=== PATIENT | male | born 1950 | race Caucasian/White ===

== ENCOUNTER → 2017-02-21 | Outpatient (CLI) | payer MEDICARE, BC, OTHER ==
--- NOTE | 2017-02-21 10:56 | REP ---
RIGHT FOOT SERIES: Four views of the right foot are performed. I see no acute fracture or dislocation. There is mild inferior calcaneal spurring. There is mild narrowing at the 1st metatarsophalangeal joint with mild subchondral sclerosis. There is diffuse narrowing of the distal interphalangeal joints of the 2nd through 5th toes. IMPRESSION: Mild degenerative changes.
== END ==
LOC: M CLY 10:16
PROVIDERS: ATTEND Family Medicine
DX: M10.071 Idiopathic gout, right ankle and foot (principal); E78.00 Pure hypercholesterolemia, unspecified; I10 Essential (primary) hypertension
CPT/HCPCS: 73630; 80053; 80061; 84550; 85027; G0463

== ENCOUNTER → 2017-02-21 | Outpatient (REF) | payer MEDICARE, OTHER ==
[2017-02-21 12:52] LABS: MEAN CORPUSCULAR HEMOGLOBIN 32.4 pg (27.0-33.0); MEAN CORPUSCULAR HGB CONC 34.2 g/dl (32.0-36.5); MEAN CORPUSCULAR VOLUME 94.6 fl (80.0-96.0); WHITE BLOOD COUNT 6.1 K/mm3 (4.0-10.0)
[2017-02-21 13:08] LABS: ALBUMIN/GLOBULIN RATIO 1.05 (1.00-1.93); ALKALINE PHOSPHATASE 69 U/L (45-117); ALT/SGPT 30 U/L (12-78); ANION GAP 7 MEQ/L (8-16); AST/SGOT 14 U/L (15-37); BILIRUBIN,TOTAL 0.9 MG/DL (0.2-1.0); BLOOD UREA NITROGEN 15 MG/DL (7-18); CALCIUM LEVEL 9.3 MG/DL (8.8-10.2); CARBON DIOXIDE LEVEL 29 MEQ/L (21-32); CHLORIDE LEVEL 104 MEQ/L (98-107); CHOLESTEROL LEVEL 158 MG/DL (<200); CREATININE FOR GFR 0.94 MG/DL (0.70-1.30); GLOMERULAR FILTRATION RATE > 60.0 (>49); GLUCOSE, FASTING 94 MG/DL (80-110); POTASSIUM SERUM 4.7 MEQ/L (3.5-5.1); SODIUM LEVEL 140 MEQ/L (136-145); TOTAL PROTEIN 7.8 GM/DL (6.4-8.2); TRIGLYCERIDES LEVEL 62 MG/DL (<150); URIC ACID 6.2 MG/DL (3.5-7.2)
== END ==
LOC: M SFHCCLAY 09:27
PROVIDERS: ATTEND Family Medicine
DX: E78.00 Pure hypercholesterolemia, unspecified (principal); I10 Essential (primary) hypertension; M10.9 Gout, unspecified

== ENCOUNTER → 2017-05-18 | Outpatient (REF) | payer MEDICARE, OTHER | LOC: M SFHCCLAY 12:56 | PROVIDERS: ATTEND Nurse Practitioner | DX: N40.3 Nodular prostate with lower urinary tract symptoms (principal) ==

== ENCOUNTER → 2017-10-16 | Outpatient (REF) | payer MEDICARE, OTHER | LOC: M LAB REF 12:52 | DX: M51.36 Other intervertebral disc degeneration, lumbar region (principal) | CPT/HCPCS: 80307 ==

== ENCOUNTER → 2018-02-15 | Outpatient (REF) | payer MEDICARE, OTHER ==
[2018-02-15 16:51] LABS: HEMATOCRIT 44.5 % (42.0-52.0); HEMOGLOBIN 15.1 g/dl (13.5-17.5); MEAN CORPUSCULAR HEMOGLOBIN 31.3 pg (27.0-33.0); MEAN CORPUSCULAR HGB CONC 33.9 g/dl (32.0-36.5); MEAN CORPUSCULAR VOLUME 92.3 fl (80.0-96.0); PLATELET COUNT, AUTOMATED 251 10^3/uL (150-450); RED BLOOD COUNT 4.82 10^6/uL (4.30-6.10); WHITE BLOOD COUNT 6.6 10^3/uL (4.0-10.0)
[2018-02-15 16:56] LABS: ALBUMIN 4.4 GM/DL (3.2-5.2); ALBUMIN/GLOBULIN RATIO 1.16 (1.00-1.93); ALKALINE PHOSPHATASE 62 U/L (45-117); ALT/SGPT 39 U/L (12-78); ANION GAP 10 MEQ/L (8-16); AST/SGOT 16 U/L (7-37); BILIRUBIN,TOTAL 0.8 MG/DL (0.2-1.0); BLOOD UREA NITROGEN 17 MG/DL (7-18); CALCIUM LEVEL 9.7 MG/DL (8.8-10.2); CARBON DIOXIDE LEVEL 26 MEQ/L (21-32); CHLORIDE LEVEL 105 MEQ/L (98-107); CHOLESTEROL LEVEL 159 MG/DL (<200); CHOLESTEROL RISK RATIO 1.962 (<5); CREATININE FOR GFR 0.97 MG/DL (0.70-1.30); GLOMERULAR FILTRATION RATE > 60.0 (>49); GLUCOSE, FASTING 103 MG/DL (70-100); HDL CHOLESTEROL 81 MG/DL (>40); NON-HDL-C 78 MG/DL; POTASSIUM SERUM 4.5 MEQ/L (3.5-5.1); SODIUM LEVEL 141 MEQ/L (136-145); TOTAL PROTEIN 8.2 GM/DL (6.4-8.2); TRIGLYCERIDES LEVEL 65 MG/DL (<150)
== END ==
LOC: M SFHCCLAY 09:30
DX: I10 Essential (primary) hypertension (principal); E78.00 Pure hypercholesterolemia, unspecified; M10.9 Gout, unspecified; Z85.46 Personal history of malignant neoplasm of prostate
CPT/HCPCS: 80053

== ENCOUNTER → 2018-08-14 | Outpatient (REF) | payer MEDICARE, OTHER ==
[2018-08-14 12:15] LABS: BLOOD UREA NITROGEN 13 MG/DL (7-18); CALCIUM LEVEL 9.2 MG/DL (8.8-10.2); CARBON DIOXIDE LEVEL 29 MEQ/L (21-32); CHLORIDE LEVEL 106 MEQ/L (98-107); CREATININE FOR GFR 0.92 MG/DL (0.70-1.30); GLOMERULAR FILTRATION RATE > 60.0 (>49); GLUCOSE, FASTING 98 MG/DL (70-100); POTASSIUM SERUM 4.5 MEQ/L (3.5-5.1); SODIUM LEVEL 141 MEQ/L (136-145)
== END ==
LOC: M SFHCCLAY 07:42
PROVIDERS: ATTEND Family Medicine
DX: I48.2 Chronic atrial fibrillation (principal)
CPT/HCPCS: 80048; 84443; G0463

== ENCOUNTER → 2019-02-12 | Outpatient (REF) | payer MEDICARE, BC ==
[~2019-02-12] MED LIST: ASPI-255 PO; ATEN50TA2 PO; COLC1TAB13 PO; FISH1000 PO; GABA-1171 PO; GABA-843 PO; HM G1TAB PO; LIPI10TA PO; LISI-542 PO; NITR0.4S14 SL; TIZA4CAP PO
[2019-02-12 17:12] LABS: ALBUMIN 4.2 GM/DL (3.2-5.2); ALT/SGPT 40 U/L (12-78); BILIRUBIN,TOTAL 0.8 MG/DL (0.2-1.0); BLOOD UREA NITROGEN 10 MG/DL (7-18); CALCIUM LEVEL 9.6 MG/DL (8.8-10.2); CARBON DIOXIDE LEVEL 31 MEQ/L (21-32); CHLORIDE LEVEL 107 MEQ/L (98-107); CHOLESTEROL LEVEL 166 MG/DL (<200); CREATININE FOR GFR 0.88 MG/DL (0.70-1.30); GLOMERULAR FILTRATION RATE > 60.0 (>49); GLUCOSE, FASTING 103 MG/DL (70-100); HDL CHOLESTEROL 86 MG/DL (>40); LDL CHOLESTEROL 68 MG/DL (<100); MAGNESIUM LEVEL 2.3 MG/DL (1.8-2.4); NON-HDL-C 80 MG/DL; POTASSIUM SERUM 4.7 MEQ/L (3.5-5.1); SODIUM LEVEL 141 MEQ/L (136-145); TOTAL PROTEIN 7.6 GM/DL (6.4-8.2); TRIGLYCERIDES LEVEL 60 MG/DL (<150)
[2019-02-12 17:23] LABS: HEMATOCRIT 44.1 % (42.0-52.0); HEMOGLOBIN 14.5 g/dl (13.5-17.5); MEAN CORPUSCULAR HEMOGLOBIN 32.1 pg (27.0-33.0); MEAN CORPUSCULAR HGB CONC 32.9 g/dl (32.0-36.5); MEAN CORPUSCULAR VOLUME 97.6 fl (80.0-96.0); PLATELET COUNT, AUTOMATED 244 10^3/uL (150-450); RED BLOOD COUNT 4.52 10^6/uL (4.30-6.10); WHITE BLOOD COUNT 4.3 10^3/uL (4.0-10.0)
== END ==
LOC: M LABDRAWC 16:17
PROVIDERS: ATTEND Physician Assistant
DX: I48.2 Chronic atrial fibrillation (principal); E78.00 Pure hypercholesterolemia, unspecified; I25.10 Atherosclerotic heart disease of native coronary artery without angina pectoris; I10 Essential (primary) hypertension

== ENCOUNTER → 2019-02-12 | Outpatient (CLI) | payer MEDICARE, BC ==
[~2019-02-12] MED LIST changes: +GARL500C PO; +PERC5TAB12 PO; +XARE10TA PO
--- NOTE | 2019-02-12 12:24 | REP ---
Chest two views HISTORY: Preop Comparison: None The lungs are clear. The heart is normal in size. The pulmonary vasculature is normal in appearance. The bony structure is intact. IMPRESSION: No acute disease.
[2019-02-12 17:18] LABS: ALT/SGPT 42 U/L (12-78); BILIRUBIN,TOTAL 0.7 MG/DL (0.2-1.0); BLOOD UREA NITROGEN 10 MG/DL (7-18); CALCIUM LEVEL 9.2 MG/DL (8.8-10.2); CARBON DIOXIDE LEVEL 30 MEQ/L (21-32); CHLORIDE LEVEL 108 MEQ/L (98-107); CREATININE FOR GFR 0.86 MG/DL (0.70-1.30); GLOMERULAR FILTRATION RATE > 60.0 (>49); GLUCOSE, FASTING 104 MG/DL (70-100); POTASSIUM SERUM 4.7 MEQ/L (3.5-5.1); SODIUM LEVEL 141 MEQ/L (136-145); TOTAL PROTEIN 7.6 GM/DL (6.4-8.2)
[2019-02-12 17:25] LABS: HEMOGLOBIN 14.3 g/dl (13.5-17.5); MEAN CORPUSCULAR HEMOGLOBIN 31.8 pg (27.0-33.0); MEAN CORPUSCULAR HGB CONC 32.5 g/dl (32.0-36.5); MEAN CORPUSCULAR VOLUME 97.8 fl (80.0-96.0); PLATELET COUNT, AUTOMATED 253 10^3/uL (150-450); WHITE BLOOD COUNT 4.2 10^3/uL (4.0-10.0)
[2019-02-12 17:36] LABS: INR 0.93; PROTHROMBIN TIME 12.6 SECONDS (12.1-14.4)
[2019-02-12 18:06] LABS: ERYTHROCYTE SEDIMENTATION RATE 9 mm/hr (0-20)
== END ==
LOC: M CLY 11:35
PROVIDERS: ATTEND Orthopaedic Surgery
DX: Z01.818 Encounter for other preprocedural examination (principal); M17.11 Unilateral primary osteoarthritis, right knee; I48.2 Chronic atrial fibrillation; I10 Essential (primary) hypertension
CPT/HCPCS: 71046; 80053; 80061; 83735; 85027; 85610; 85652; G0463

== ENCOUNTER 2019-02-18 09:29 | Inpatient (IN) | payer MEDICARE, BC, OTHER ==
--- NOTE | 2019-02-14 13:40 | HPE ---
DATE OF ADMISSION: 02/18/2019 ATTENDING PHYSICIAN: Dr. Dawood Napier. CHIEF COMPLAINT: Right knee pain. HISTORY OF PRESENT ILLNESS: Mr. Fitzgerald is a pleasant 68-year-old male with progressively worsening right knee pain and stiffness. He has failed to improve with conservative treatment. He has elected for surgery for his continued symptoms. He has pain with weightbearing activities and his activities of daily living. X-rays of his knee are notable for advanced osteoarthritis of the right knee joint. He has consented for a right total knee arthroplasty by Dr. Dawood Napier. Medical optimization was performed by Dr. Encarnacion. ALLERGIES: None. CURRENT MEDICATIONS: - gabapentin 100 mg in the morning 300 at bedtime - tizanidine 4 mg three times a day as needed - fish oil 1200 mg twice a day - aspirin 325 mg a day - lisinopril 5 mg a day - Lipitor 10 mg at bedtime - Nitrostat 0.4 mg sublingual as needed - colchicine 0.6 mg - Lidoderm patch 5% - garlic 1000 mg. PAST SURGICAL HISTORY: Includes tonsils and adenoids as a 11-year-old and a right knee arthroscopy in 2014. PAST MEDICAL HISTORY: Includes gout, hypertension, hyperlipidemia. SOCIAL HISTORY: This gentleman is retired. Does not smoke. Drinks daily. FAMILY HISTORY: Noncontributory. REVIEW OF SYSTEMS: This patient denies chest pain, heart palpitations, cough, wheezing, difficulty breathing and shortness of breath. He denies abdominal pain, nausea, vomiting, diarrhea or constipation. He denies recent upper respiratory infection or urinary tract infection symptoms. He does complain of persistent pain in the right knee and pain with weightbearing activities in the right knee. PHYSICAL EXAMINATION: GENERAL: He is well-nourished, well-developed in no acute distress, alert male patient. He walks with a mild limp favoring the right lower extremity. He is not using assistive devices. VITAL SIGNS: He is 6 foot 1-3/4 inches tall, weighs 204.4 pounds, temperature of 97.5, blood pressure 112/72, pulse 60, respirations of 12. Neck was supple without adenopathy or jugular venous distension. There were no carotid bruits appreciated upon auscultation. Lungs were clear to auscultation without rales or wheeze throughout. Heart: Regular rate and rhythm. Abdomen: Bowel sounds were present. Extremities: Examination of the knee revealed intact skin. He had decreased range of motion due to pain and stiffness. The limb was neurovascularly intact. LABORATORY DATA: EKG showed atrial fibrillation with somewhat slow ventricular response at 50 beats per minute. I do not have a chest x-ray. Glucose was 104, BUN 10, creatinine 0.86, sodium 141, potassium 4.7. ProTime 12.6, INR 0.93. CBC showed MCV of 97.8, otherwise within normal limits with a sed rate of 9. IMPRESSION: Symptomatic osteoarthritis of the right knee joint. PLAN: He consented for a right total knee arthroplasty by Dr. Dawood Napier.
[~2019-02-18] VITALS: Ht 188 cm; Wt 89.8 kg
[~2019-02-18 09:29] MED LIST changes: -GARL500C PO; +LIDOCAINE 1% MDV 20ML VIAL SQ PRN; +LR 1,000 ML IV ONE; -PERC5TAB12 PO; -XARE10TA PO
[2019-02-18] MEDS ORDERED: GARL500C PO (10:30)
[2019-02-18] MEDS ORDERED: EPINEPHrine INJ 1 MG/ML 1ML AMP As Ordered ONE (11:13)
[2019-02-18] MEDS ORDERED: BUPIVACAINE LIPOSOME/PF 1.3% 20ML VIAL (13.3MG/ML)(EXPAREL)(C9290 PER1MG) As Ordered ONE (11:13)
[2019-02-18] MEDS ORDERED: ceFAZolin 1GM INJ (J0690 PER 500MG) As Ordered ONE (11:13)
[2019-02-18] MEDS ORDERED: TRANEXAMIC ACID 100 MG/ML 10ML VIAL As Ordered ONE (11:13)
[2019-02-18] MEDS ORDERED: MIDAZOLAM INJ 2 MG/2 ML VIAL (J2250) As Ordered ONE ×2 (11:25→13:16)
[2019-02-18] MEDS ORDERED: fentaNYL 100 MCG/2 ML INJECTION (J3010) As Ordered ONE ×2 (11:25→13:16)
[2019-02-18] MEDS ORDERED: MIDAZOLAM INJ 2 MG/2 ML VIAL (J2250) IV ONE ×2 (12:30→12:45)
[2019-02-18] MEDS ORDERED: fentaNYL 100 MCG/2 ML INJECTION (J3010) IV ONE ×2 (12:30→12:45)
[2019-02-18] MEDS ORDERED: ONDANSETRON 4MG/2ML VIAL (J2405) As Ordered ONE (13:16)
[2019-02-18] MEDS ORDERED: PROPOFOL 200 MG/20 ML VIAL As Ordered ONE (13:16)
[2019-02-18] MEDS ORDERED: LIDOCAINE 2% INJ 100 MG/5 ML SDV (FOR ANES.) As Ordered ONE (13:16)
[2019-02-18] MEDS ORDERED: ePHEDrine SULFATE 25 MG/5 ML(5MG/ML) SYRINGE As Ordered ONE (13:41)
[2019-02-18] MEDS ORDERED: ROPIvacaine 0.5% 30 ML INJECTION (J2795 PER 1MG) ONE (14:03)
[2019-02-18] MEDS ORDERED: dexameTHASONE 10 MG/1 ML VIAL PRES.FREE (J1100) ONE (14:03)
[2019-02-18] MEDS ORDERED: LIDOCAINE 1% MDV 20ML VIAL ONE (14:03)
[2019-02-18] MEDS ORDERED: HYDROMORPHONE HCL 0.5 MG/ 0.5 ML SYRINGE (J1170 PER 1) IV PRN (14:15)
[2019-02-18] MEDS ORDERED: PERCOCET 5MG/325MG TAB PO PRN ×2 (14:15→14:30)
[2019-02-18] MEDS ORDERED: LR 1,000 ML IV SCH (14:15)
[2019-02-18] MEDS ORDERED: MORPHINE 4 MG/ML 1ML VIAL/SYRINGE (J2270) IV PRN ×2 (14:15→14:30)
[2019-02-18] MEDS: LR 1,000 ML IV SCH (14:15)
[2019-02-18] MEDS ORDERED: ONDANSETRON 4MG/2ML VIAL (J2405) IV PRN ×2 (14:15→14:30)
[2019-02-18] MEDS ORDERED: fentaNYL 100 MCG/2 ML INJECTION (J3010) IV PRN (14:15)
--- NOTE | 2019-02-18 14:53 | IPN ---
DATE: 02/18/2019 Patient seen and examined. He wishes to go ahead with a right total knee arthroplasty. He understands the nature of this, the risks of bleeding, infection, damage to nerves, vessels, persistent pain, wear, loosening, blood clots, medical problems, , among others. He wishes to proceed with a right knee arthroplasty. Preop clearance was obtained.
--- NOTE | 2019-02-18 14:56 | RO ---
DATE OF PROCEDURE: 02/18/2019 PREOPERATIVE DIAGNOSIS: Right knee osteoarthritis. POSTOPERATIVE DIAGNOSIS: Right knee osteoarthritis. PROCEDURE: Right total knee arthroplasty, Attune rotating platform cruciate-retaining size 6, femur size 7, tibia 8, polyethylene 38 patellar button. SURGEON: Dawood Napier MD ASSEMBLER RUBBER FOOTWEAR: Beto Mckeon PA-C ANESTHESIA: Spinal. ESTIMATED BLOOD LOSS (EBL): Less than 50. COMPLICATION: None. INDICATIONS: A 68-year-old gentleman who has had some persistent knee pain with severe arthritis that was [id number]. He had diffuse pain and wished to go ahead with the knee replacement. He understood the nature of this, the risks, and the alternatives. DESCRIPTION OF PROCEDURE: The patient was taken to the operating room and placed in supine position after spinal anesthesia was induced. The right lower extremity was prepped and draped in the usual sterile fashion. Tourniquet was inflated after time-out was performed. I then created a longitudinal incision over the anterior aspect of the knee, a curvilinear incision over the medial parapatellar region, everted the patella, flexed the knee up, used the canal-initiating reamer, followed by the intramedullary guide set at 9 mm and 5 degrees of valgus. This was pinned in placed. The distal femoral cut was made. I sized the femur to be a 6. The pin holes were placed in the end of the femur with external rotation dialed in, and the cutting block was secured with remaining four cuts made. I then prepared the tibia. The tibial alignment guide was placed, and the appropriate amount of slope and valgus were dialed in, and this was pinned in place. External alignment guide was used to confirm the alignment, and the proximal tibia cut was made, removing about 4 mm of bone on the medial side. The posterior cruciate ligament (PCL) was retained. I removed any osteophytes and soft tissue from either side of the knee. The flexion extension gaps were appropriate. I then used the spacer block and decided on probably a size 8 polyethylene poly. I then prepared the tibia. The tibial plate was placed. It was a size 7. This was drilled and broached. I had also done the sulcus cut on the femur, and the trial components were then placed, which fit very nicely and very stable. The patella was freehand cut, removing about 8 mm of bone, sized to be a 38. The drill holes were placed, and the drill holes were placed at the end of the femur. The knee was very stable. It had excellent alignment. Excellent soft tissue balance. I removed the trial components, irrigated and dried copiously. The manufacturing assistant prepared the bone cement in a modern technique. I then injected the Exparel in deep tissues. I cemented on the tibial tray, and the polyethylene was placed. The femoral component was placed and cemented on. All excess bone cement was removed. I cemented on the patella, held it in place with a clamp, and irrigated copiously. I placed the tranexamic acid (TXA) solution deep in the tissues, and final irrigation was performed. I then removed the patellar clamp once the cement had hardened, and final irrigation was performed. I then closed the deep layer with interrupted #1 Vicryl suture and running Stratafix suture for a watertight closure. Irrigated, closed the subcutaneous with 2-0 Vicryl, and the skin with eric. Sterile dressing was applied. Tourniquet was deflated, and he was taken to recovery room in stable condition. There were no known complications. The plan will be routine postoperative. The manufacturing assistant was instrumental in holding retractors, with mixing the bone cement, assisting in wound closure.
[2019-02-18] MEDS ORDERED: FLEET ENEMA PR PRN (15:15)
[2019-02-18] MEDS ORDERED: ACETAMINOPHEN TAB 650MG DOSE (2X325MG) PO PRN (15:15)
--- NOTE | 2019-02-18 16:10 | REP ---
RIGHT KNEE, TWO VIEWS: Two portable views of the right knee are performed status post right knee arthroplasty. Femoral and tibial prosthetic components are in good position. The structures are well aligned. Metallic skin eric are seen anteriorly. Electronically Signed by Jcarlos Rich MD 02/18/2019 04:52 P
[2019-02-18] MEDS ORDERED: NITROGLYCERIN 0.4 MG SUBL TABLET SL PRN (17:15)
--- NOTE | 2019-02-18 17:17 | CR.PDOC ---
General Date of Consultation: Feb 18, 2019 Consultation REASON FOR CONSULTATION/CHIEF COMPLAINT: . Management of medical comorbidities HISTORY OF PRESENT ILLNESS: . 68-year-old male with past medical history of hypertension, dyslipidemia, RODNEY, chronic back pain, osteoarthritis, atrial fibrillation not on AC was admitted un terrence the orthopedic surgery service for right knee replacement. The hospitalist team was consulted for management of the patient's medical comorbidities. At this time, the patient denies any acute complaints of fevers, chills, chest pain, shortness of breath, abdominal pain, or any nausea/vomiting/diarrhea. ALLERGIES: Please see below. HOME MEDICATIONS: Please see below. PAST MEDICAL HISTORY: As noted above PAST SURGICAL HISTORY: TONSILECTOMY PROSTATE BX (DR. WESLEY) COLONOSCOPY 06/2003, 2009 BX LEFT SHOULDER BLADE LOWER BACK DX MELANOMA BCC ON HEAD 05/2018 SOCIAL HISTORY: Denies tobacco, alcohol, or illicit drug use. REVIEW OF SYSTEMS: 10 point review of systems negative unless otherwise specified in HPI. PHYSICAL EXAMINATION: VITAL SIGNS: Please see below. GENERAL APPEARANCE: . Awake, alert, in no acute distress HEENT: .Normocephalic, AT RESPIRATORY: .CTA B/L CARDIOVASCULAR: .Normal Rate, Normal S1, S2 ABDOMEN: .Soft, NT, ND EXTREMITIES: . Right Knee wrapped in surgical dressing. Limited ROM 2/2 recent surgery. Neurovascularly intact distally LABORATORY DATA: Please see below. ASSESSMENT/PLAN: s/p Right Knee Replacement Perioperative surgical mgmt as per primary team Hx of Atrial Fibrillation Not on AC at baseline by choice. He has discussed this at length with his PCP and follows with Dr. Rocha at his office HTN Hold Lisinopril until AM labs Neuropathy Cont Gabapentin Dyslipidemia Cont Statin RODNEY May use home CPAP DVT Prophylaxis On Xarelto as per Ortho Vital Signs/I&O Vital Signs Date Time Temp Pulse Resp B/P (MAP) Pulse Ox O2 Delivery O2 Flow Rate FiO2 02/18/19 17:13 97.3 74 16 150/72 (98) 96 02/18/19 12:18 2 Allergies Coded Allergies: No Known Allergies (Unverified , 02/18/19) Home Medications Scheduled Aspirin (Aspirin EC) 325 Mg Tablet., 325 MG PO DAILY, (Reported) Atorvastatin Calcium (Lipitor) 10 Mg Tablet, 1 TAB PO DAILY for 30 Days, #30 (Reported) Colchicine (Colchicine) 0.6 Mg Tablet, 0.6 MG PO DAILYPRN, (Reported) Gabapentin (Gabapentin) 300 Mg Capsule, 300 MG PO QHS, (Reported) Gabapentin (Gabapentin) 100 Mg Capsule, 100 MG PO QAM, (Reported) Garlic (Garlic) 500 Mg Capsule, 1,000 MG PO BID, (Reported) Lisinopril (Lisinopril) 5 Mg Tablet, 5 MG PO DAILY, (Reported) Nitroglycerin (Nitroglycerin) 0.4 Mg Tab.subl, 0.4 MG SL NITRO, (Reported) [place]-3 Fatty Acids/Fish Oil (Fish Oil 1,000 mg Capsule) 1 Each Capsule, 1,000 MG PO BID, (Reported) Scheduled PRN Tizanidine HCl (Tizanidine HCl) 4 Mg Capsule, 4 MG PO TIDP PRN for PAIN, (Reported) been taking bid FAISAL GILMORE MD Feb 18, 2019 17:17
[2019-02-18 18:50] VITALS: BP 146/80
[2019-02-18 19:10] VITALS: BP 138/79
[2019-02-18 20:00] VITALS: BP 140/82
[2019-02-18 21:00] VITALS: BP 140/80
[2019-02-18] MEDS ORDERED: GABAPENTIN 300 MG CAP PO SCH (21:00)
[2019-02-18] MEDS ORDERED: ATORVASTATIN 10 MG TAB PO SCH (21:00)
[2019-02-18 23:00] VITALS: BP 146/86
[2019-02-19 02:00] VITALS: BP 107/72
[2019-02-19] MEDS: LR 1,000 ML IV SCH (03:35)
[2019-02-19 06:00] VITALS: BP 117/71
[2019-02-19 06:32] LABS: HEMATOCRIT 37.2 % (42.0-52.0); HEMOGLOBIN 12.9 g/dl (13.5-17.5); MEAN CORPUSCULAR HEMOGLOBIN 32.1 pg (27.0-33.0); MEAN CORPUSCULAR HGB CONC 34.7 g/dl (32.0-36.5); MEAN CORPUSCULAR VOLUME 92.5 fl (80.0-96.0); PLATELET COUNT, AUTOMATED 233 10^3/uL (150-450); RED BLOOD COUNT 4.02 10^6/uL (4.30-6.10); WHITE BLOOD COUNT 10.4 10^3/uL (4.0-10.0)
[2019-02-19] MEDS ORDERED: PERCOCET 5MG/325MG TAB PO PRN (06:45)
[2019-02-19 07:02] LABS: BLOOD UREA NITROGEN 14 MG/DL (7-18); CALCIUM LEVEL 9.2 MG/DL (8.8-10.2); CARBON DIOXIDE LEVEL 29 MEQ/L (21-32); CHLORIDE LEVEL 104 MEQ/L (98-107); CREATININE FOR GFR 0.84 MG/DL (0.70-1.30); GLOMERULAR FILTRATION RATE > 60.0 (>49); GLUCOSE, FASTING 145 MG/DL (70-100); POTASSIUM SERUM 4.1 MEQ/L (3.5-5.1); SODIUM LEVEL 138 MEQ/L (136-145)
[2019-02-19] MEDS ORDERED: PERC5TAB12 PO (07:27)
[2019-02-19] MEDS ORDERED: XARE10TA PO (07:27)
[2019-02-19] MEDS ORDERED: MIRALAX *UNIT DOSE* 17GM PACKET PO SCH (09:00)
[2019-02-19] MEDS ORDERED: MOM 30ML SUSPENSION UDC PO SCH (09:00)
[2019-02-19] MEDS ORDERED: GABAPENTIN 100 MG CAP PO SCH (09:00)
[2019-02-19 10:00] VITALS: BP 143/75
[2019-02-19] MEDS ORDERED: RIVAROXABAN 10 MG TAB (XARELTO) PO SCH (18:00)
--- NOTE | 2019-02-21 22:55 | DSES ---
DATE OF ADMISSION: 02/18/2019 DATE OF DISCHARGE: 02/19/2019 ADMISSION DIAGNOSIS: Osteoarthritis right knee. OTHER DIAGNOSIS: Atrial fibrillation. Hypertension. Neuropathy. Elevated lipids. Sleep apnea. DISCHARGE DIAGNOSIS: Osteoarthritis right knee, status post right total knee arthroplasty. OPERATION PERFORMED: Right total knee arthroplasty. HISTORY: A 68-year-old male patient with progressively worsening right knee pain and stiffness. He failed to improve with conservative; he was admitted for elective knee replacement on the right side. HOSPITAL COURSE: The patient was admitted on the day of surgery, underwent a right total knee arthroplasty which was uneventful. He did well in the postoperative period, and his hospital course was without complications. He was up with physical therapy per the protocol. His pain was controlled. On day of discharge, he was doing well, weightbearing as tolerated on his right lower extremity. He will move his right knee to prevent stiffness. He will use thromboembolism deterrent (ROBERT) stockings for 30 days for deep vein thrombosis (DVT) prophylaxis. He will also use Xarelto 10 mg per the protocol for DVT prophylaxis. He will follow up in our office in 10-14 days for surgical followup. He was given instructions to include but not limited to wound monitoring and activity limitations. He will use oral pain medications for pain control. He will resume his preoperative medications and diet. Please refer the medical record for further details.
== END 2019-02-19 11:40 | disposition home or self-care (01) | DRG 470 ==
LOC: M OR 09:29 → M MS5PR 18:35
PROVIDERS: ADMIT Orthopaedic Surgery; ATTEND Orthopaedic Surgery
PROC: 0SRC0J9 Replacement of Right Knee Joint with Synthetic Substitute, Cemented, Open Approach (ICD-10-PCS; principal; 2019-02-18 12:45)
DX: M17.11 Unilateral primary osteoarthritis, right knee (principal); Z79.899 Other long term (current) drug therapy; Z79.82 Long term (current) use of aspirin; G47.33 Obstructive sleep apnea (adult) (pediatric); E78.5 Hyperlipidemia, unspecified; I10 Essential (primary) hypertension; I48.2 Chronic atrial fibrillation; I25.10 Atherosclerotic heart disease of native coronary artery without angina pectoris; I27.20 Pulmonary hypertension, unspecified; E66.9 Obesity, unspecified; M54.5 Low back pain

== ENCOUNTER → 2019-06-12 | Outpatient (REF) | payer MEDICARE, OTHER ==
[~2019-06-12] MED LIST changes: +GARL500C10 PO; -LIDOCAINE 1% MDV 20ML VIAL SQ PRN; -LR 1,000 ML IV ONE; +PERC5TAB12 PO; +XARE10TA PO
== END ==
LOC: M LABDRAWC 09:37
DX: N40.3 Nodular prostate with lower urinary tract symptoms (principal)

== ENCOUNTER → 2019-09-05 | Outpatient (CLI) | payer MEDICARE, BC, OTHER ==
--- NOTE | 2019-09-05 19:33 | REP ---
MRI left shoulder without contrast: History: Impingement syndrome rule out rotator cuff tear. Technique: Axial, oblique coronal and oblique sagittal imaging planes were utilized. T1 and T2-weighted scans were included with and without fat saturation. No comparison imaging. MRI findings: The glenohumeral and acromioclavicular joints are normally aligned. There is moderate osteoarthritic hypertrophy at the acromioclavicular joint with some subcortical cyst formation and marrow edema at the AC joint. Superior and inferior hypertrophy is seen indenting the musculotendinous junction of the supraspinatus. There is a mild to moderate glenohumeral osteoarthritic spurring as well. An areas of subcortical marrow edema is seen in the superolateral humeral head. No Hill-Sachs deformity is appreciated. There is some inferolateral acromion process spurring. Subacromial subdeltoid bursal effusion is present. There is evidence of a complete full-thickness tear of the distal supraspinatus tendon with partial retraction. No supraspinatus muscle atrophy is seen. There is tendinosis tendonitis change in the distal subscapularis tendon. Infraspinatus tendon is unremarkable. The biceps tendon is seen within the bony bicipital groove and appears to be intact. There is edema undermining the posterior glenoid labrum without displacement. Chondromalacia is seen in the glenohumeral articulation. No definite superior labral tear is seen. No juxtaarticular cyst or mass is seen. Cortical and medullary bone signal intensity are otherwise unremarkable. Impression: AC joint hypertrophy and acromion process spurring with subacromial subdeltoid bursal effusion. Advanced tendonitis tendinosis in the supraspinatus with a complete distal supraspinatus cuff tear. Tendinosis in the subscapularis tendon. Glenohumeral osteoarthritic spurring. Marrow edema in the superolateral humeral head. Degenerative changes in the posterior labral cartilage. Electronically Signed by Zach Campos MD 09/06/2019 07:37 A
== END ==
LOC: M RAD 14:26
PROVIDERS: ATTEND Orthopaedic Surgery Sports Medicine
DX: M75.42 Impingement syndrome of left shoulder (principal)

== ENCOUNTER → 2020-02-19 | Outpatient (REF) | payer MEDICARE, BC, OTHER ==
[~2020-02-19] MED LIST changes: -GARL500C10 PO; +GARL500C2 PO
[2020-02-19 14:15] LABS: HEMOGLOBIN 13.8 g/dl (13.5-17.5); MEAN CORPUSCULAR HEMOGLOBIN 31.3 pg (27.0-33.0); MEAN CORPUSCULAR HGB CONC 32.1 g/dl (32.0-36.5); MEAN CORPUSCULAR VOLUME 97.5 fl (80.0-96.0); PLATELET COUNT, AUTOMATED 239 10^3/uL (150-450); RED BLOOD COUNT 4.41 10^6/uL (4.30-6.10); WHITE BLOOD COUNT 4.5 10^3/uL (4.0-10.0)
[2020-02-19 14:48] LABS: ALBUMIN 4.1 GM/DL (3.2-5.2); ALT/SGPT 35 U/L (12-78); BILIRUBIN,TOTAL 0.6 MG/DL (0.2-1.0); BLOOD UREA NITROGEN 14 MG/DL (7-18); CALCIUM LEVEL 9.5 MG/DL (8.8-10.2); CARBON DIOXIDE LEVEL 30 MEQ/L (21-32); CHLORIDE LEVEL 103 MEQ/L (98-107); CHOLESTEROL LEVEL 171 MG/DL (<200); CHOLESTEROL RISK RATIO 2.085 (<5); CREATININE FOR GFR 0.91 MG/DL (0.70-1.30); GLOMERULAR FILTRATION RATE > 60.0 (>49); GLUCOSE, FASTING 87 MG/DL (70-100); HDL CHOLESTEROL 82 MG/DL (>40); LDL CHOLESTEROL 78 MG/DL (<100); NON-HDL-C 89 MG/DL; POTASSIUM SERUM 4.6 MEQ/L (3.5-5.1); SODIUM LEVEL 137 MEQ/L (136-145); TOTAL PROTEIN 7.6 GM/DL (6.4-8.2); TRIGLYCERIDES LEVEL 53 MG/DL (<150)
[2020-02-20 17:08] LABS: Lyme Disease IgG/IgM Antibodie <0.91 ISR (0.00-0.90); Lyme Disease IgM Ab Quantitati <0.80 index (0.00-0.79)
== END ==
LOC: M SFHCCLAY 09:19
PROVIDERS: ATTEND Family Medicine
DX: I10 Essential (primary) hypertension (principal); I48.20 Chronic atrial fibrillation, unspecified; G47.33 Obstructive sleep apnea (adult) (pediatric); M54.5 Low back pain; Z20.9 Contact with and (suspected) exposure to unspecified communicable disease
CPT/HCPCS: 80053; 80061; 84443; 85027; 86617; G0463

== ENCOUNTER → 2020-08-06 | Outpatient (CLI) | payer MEDICARE, BC, OTHER ==
[~2020-08-06] MED LIST changes: +COLC0.6T47 PO; -COLC1TAB13 PO
== END ==
LOC: M LABSMTC 11:31
PROVIDERS: ATTEND Orthopaedic Surgery Sports Medicine
DX: Z01.812 Encounter for preprocedural laboratory examination (principal); Z20.828 Contact with and (suspected) exposure to other viral communicable diseases

== ENCOUNTER → 2020-09-10 | Outpatient (REF) | payer MEDICARE, OTHER | LOC: M LABDRAWC 15:49 | PROVIDERS: ATTEND Nurse Practitioner | DX: N40.3 Nodular prostate with lower urinary tract symptoms (principal) ==

== ENCOUNTER → 2020-11-30 | Outpatient (CLI) | payer MEDICARE, OTHER ==
[~2020-11-30] MED LIST changes: +GABA-282 PO; -GABA-843 PO; -LISI-542 PO; +LISI-898 PO
--- NOTE | 2020-11-30 12:09 | REP ---
INDICATION: RIGHT SHOULDER PAIN. COMPARISON: None. TECHNIQUE: Internal rotation, external rotation, Y-view and axillary view of the right shoulder. FINDINGS: Age-related osteopenia and arthritic changes include subtle cortical irregularity and spurring at the acromioclavicular joint as well as subtle irregular blunting of the calcified glenoid rim. The subacromial space measures 9.1 mm. No evidence for acute or healed injury. No periarticular calcifications. IMPRESSION: Osteopenia and mild arthritic changes. <Electronically signed by Brian Worthy > 11/30/20 [id number]
== END ==
LOC: M SOG 11:07
PROVIDERS: ATTEND Orthopaedic Surgery Sports Medicine
DX: M75.41 Impingement syndrome of right shoulder (principal)

== ENCOUNTER → 2021-03-15 | Outpatient (CLI) | payer OTHER ==
[~2021-03-15] MED LIST changes: +ASPI325T57 PO; +IRON325T9 PO; -LISI-898 PO; +LISI5TAB11 PO
== END ==
LOC: M PLAIMG 07:32
PROVIDERS: ATTEND Physician Assistant
DX: M51.36 Other intervertebral disc degeneration, lumbar region (principal)

== ENCOUNTER → 2021-03-24 | Outpatient (REF) | payer MEDICARE, OTHER ==
[~2021-03-24] MED LIST changes: -ASPI325T57 PO; -IRON325T9 PO; +LISI-898 PO; -LISI5TAB11 PO
[2021-03-24 13:28] LABS: BASO % 0.5 % (0.0-1.0); EOS # 0.4 10^3/uL (0.0-0.5); EOS % 6.3 % (0.0-3.0); HEMATOCRIT 41.9 % (42.0-52.0); HEMOGLOBIN 13.8 g/dl (13.5-17.5); LYMPH # 1.5 10^3/uL (1.5-5.0); LYMPH % 25.3 % (24.0-44.0); MEAN CORPUSCULAR HEMOGLOBIN 32.2 pg (27.0-33.0); MEAN CORPUSCULAR HGB CONC 32.9 g/dl (32.0-36.5); MEAN CORPUSCULAR VOLUME 97.9 fl (80.0-96.0); MONO # 0.7 10^3/uL (0.0-0.8); MONO % 12.4 % (2.0-8.0); NEUTROPHILS # 3.3 10^3/uL (1.5-8.5); NEUTROPHILS % 55.3 % (36.0-66.0); PLATELET COUNT, AUTOMATED 275 10^3/uL (150-450); RED BLOOD COUNT 4.28 10^6/uL (4.30-6.10); WHITE BLOOD COUNT 5.9 10^3/uL (4.0-10.0)
[2021-03-24 14:31] LABS: ALBUMIN 4.4 GM/DL (3.2-5.2); ALT/SGPT 45 U/L (12-78); BILIRUBIN,TOTAL 0.9 MG/DL (0.2-1.0); BLOOD UREA NITROGEN 13 MG/DL (7-18); CALCIUM LEVEL 9.1 MG/DL (8.8-10.2); CARBON DIOXIDE LEVEL 28 MEQ/L (21-32); CHLORIDE LEVEL 104 MEQ/L (98-107); CHOLESTEROL LEVEL 198 MG/DL (<200); CHOLESTEROL RISK RATIO 1.941 (<5); CREATININE FOR GFR 0.81 MG/DL (0.70-1.30); GLOMERULAR FILTRATION RATE > 60.0 (>49); GLUCOSE, FASTING 89 MG/DL (70-100); HDL CHOLESTEROL 102 MG/DL (>40); LDL CHOLESTEROL 85 MG/DL (<100); NON-HDL-C 96 MG/DL; POTASSIUM SERUM 4.8 MEQ/L (3.5-5.1); SODIUM LEVEL 138 MEQ/L (136-145); TOTAL PROTEIN 8.1 GM/DL (6.4-8.2); TRIGLYCERIDES LEVEL 53 MG/DL (<150); URIC ACID 6.5 MG/DL (3.5-7.2)
== END ==
LOC: M SFHCCLAY 09:02
PROVIDERS: ATTEND Family Medicine
DX: G47.33 Obstructive sleep apnea (adult) (pediatric) (principal); I10 Essential (primary) hypertension; M10.9 Gout, unspecified; E78.00 Pure hypercholesterolemia, unspecified; R53.82 Chronic fatigue, unspecified
CPT/HCPCS: 80053; 80061; 84439; 84443; 84550; 85025; G0463

== ENCOUNTER → 2021-05-18 | Outpatient (CLI) | payer MEDICARE, BC, OTHER ==
--- NOTE | 2021-05-18 11:01 | REP ---
INDICATION: M79.605, PAIN OF LEFT LOWER EXTREMITY COMPARISON: Left knee 05/16/2011. TECHNIQUE: AP and lateral left lower leg. FINDINGS: There is no evidence of acute fracture, dislocation, or intrinsic bone disease.There is moderate medial joint space narrowing at the knee with subchondral sclerosis and mild spurring. There is mild superior patellar spurring as well. There is a small spur of the inferior aspect of the calcaneus. IMPRESSION: No fracture or dislocation. Degenerative changes of the knee. Mild inferior calcaneal spurring. <Electronically signed by Jcarlos Rich > 05/18/21 1051
== END ==
LOC: M CLY 09:20
PROVIDERS: ATTEND Family Medicine
DX: M17.12 Unilateral primary osteoarthritis, left knee (principal); M77.32 Calcaneal spur, left foot; M79.605 Pain in left leg; T14.8XXA Other injury of unspecified body region, initial encounter
CPT/HCPCS: 73590; G0463

== ENCOUNTER → 2021-07-17 | Outpatient (CLI) | payer MEDICARE, BC, OTHER ==
[~2021-07-17] MED LIST changes: +ASPI325T57 PO; +IRON325T9 PO
== END ==
LOC: M LABSMTC 09:13
PROVIDERS: ATTEND Anesthesiology
DX: Z01.812 Encounter for preprocedural laboratory examination (principal); Z20.822 Contact with and (suspected) exposure to COVID-19

== ENCOUNTER 2021-07-21 09:58 | Day surgery (SDC) | payer MEDICARE, BC, OTHER ==
[~2021-07-21] VITALS: Ht 188 cm; Wt 93.4 kg
[~2021-07-21 09:58] MED LIST changes: +NS 1,000 ML IV ONE
--- OUTSIDE RECORDS SUMMARY | 2021-07-21 10:05 | CCD | Continuity of Care Document ---
Author Author Sagar AGUILERA M.D. Organization Unknown Address [address] [place] [address] Phone [phone] Care Team Providers Care Clothes Ironer Name Role Phone Dann Encarnacion M.D. [facility] [phone] Problems Active Problems Provider Date Screening for malignant neoplasm of colon Gerry crawley M.D. Onset: 05/27/2021 Social History Type Date Description Comments Sex Unknown ETOH Use Drinks 3 Alcoholic Beverages Per Day Tobacco Use Start: Unknown Patient has never smoked Allergies and adverse reactions Description No Known Drug Allergies Medications Active Medications SIG Qnty Indications Ordering Provide r Date Sutab [id number] Tablets as directed 1box Gerry Aguilera M.D. 05/27/2021 Atorvastatin Calcium 10mg Tablets Take One Tablet By Mouth AT Bedtime Unknown Lisinopril 5mg Tablets Take One Tablet By Mouth AT Bedtime Unknown Nitroglycerin 0.4mg Tablets Sub Place One Tablet Under The Tongue Every 5 Minutes For Up To 3 Doses as Needed Fo Unknown Colchicine 0.6mg Tablets Take One Tablet By Mouth Two Times A Day Until Pain Resolves Or Diarrhea Develop Unknown Garlic 1000mg Capsules Unknown Lidocaine Pain Relief 4% Patches Unknown Aspirin 325mg Tablets Unknown Immunizations Description No Information Available Vital Signs Date Vital Result Comment 05/27/2021 11:00am Height 74 inches 6'2" Weight 197.44 lb BP Systolic 111 mmHg BP Diastolic 74 mmHg Heart Rate 51 /min BMI (Body Mass Index) 25.3 kg/m2 Weight 89.558 kg Body Temperature 96.6 F Results Description No Information Available Procedures Date Code Description Status 05/27/2021 62399 Office/Outpatient New Low MDM 30 -44 Minutes Completed Medical Devices Description No Information Available Encounters Type Date Location Provider Dx Diagnosis Office Visit 05/27/2021 10:30a Main Office Gerry Aguilera M.D. Z 12.11 Encounter for screening for malignant neoplasm of colon Assessments Date Code Description Provider 05/27/2021 Z12.11 Screening for malignant neoplasm of colon Gerry Aguilera M.D. Plan of Treatment Future Appointment(s):* 07/21/2021 11:00 am - Gerry Aguilera M.D. at Main Office 05/27/2021 - Gerry Aguilera M.D.* Z12.11 Screening for malignant neoplasm of colon* Comments:* 70 yo wm who presents for a screening colonoscopy. Last scope was in 2009. No c/o abdominal pain, weight loss, change in bowel habits, or rectal bleeding. No family h/o colon cancer. No h/o chest pain, or sob. Plan:1.Schedule patient for a colonoscopy.2.Informed consent given to the patient.3.Pt. advised to stop aspirin,plavix, and anticoagulants at least 3 to 7 days prior to the procedure. Functional Status Description No Information Available Mental Status Description No Information Available Referrals Description No Information Available
--- OUTSIDE RECORDS SUMMARY | 2021-07-21 10:05 | CCD | Continuity of Care Document ---
Author Author Sagar AGUILERA M.D. Organization Unknown Address [address] [place] [address] Phone [phone] Care Team Providers Care Plumber Cub Name Role Phone Dann Encarnacion M.D. [facility] [phone] Problems Active Problems Provider Date Screening for malignant neoplasm of colon Gerry crawley M.D. Onset: 05/27/2021 Social History Type Date Description Comments Sex Unknown ETOH Use Drinks 3 Alcoholic Beverages Per Day Tobacco Use Start: Unknown Patient has never smoked Allergies and adverse reactions Description No Known Drug Allergies Medications Active Medications SIG Qnty Indications Ordering Provide r Date Sutab [id number] Tablets as directed 1box Gerry Aguilera M.D. [...] F Results Description No Information Available Procedures Description No Information Available Medical Devices Description No Information Available Encounters Description No Information Available Assessments Date Code Description Provider 05/27/2021 Z12.11 [...]
--- OUTSIDE RECORDS SUMMARY | 2021-07-21 10:05 | CCD | Continuity of Care Document ---
Author Author Sagar RUSSELL ANP Organization Unknown Address [address] [place] [address] Phone [phone] Care Team Providers Care Tube Bender Name Role Phone Dann Encarnacion M.D. [facility] [phone] Problems Active Problems Provider Date Allergic rhinitis Radah Russell A.NMatt Onset: 06/11/2014 Obstructive sleep apnea syndrome Radha Russell A.NMatt Onset: 04/01/2014 Dyspnea Radha Russell A.NMatt Onset: 02/10/2014 Difficulty breathing Radha Russell A.NMatt Onset: 02/10/2014 Disturbance of consciousness Radha Russell A.NMatt Onset: 05/2014 Dyssomnia Radha Russell A.NMatt Onset: 02/10/2014 Sleep apnea Radha Russell A.NMatt Onset: 02/10/2014 Social History Type Date Description Comments Sex Unknown ETOH Use Currently consumes alcohol Daily Tobacco Use Start: Unknown Non Smoker Smoking Status Reviewed: 06/07/21 Non Smoker Allergies and adverse reactions Description No Known Drug Allergies Medications Active Medications SIG Qnty Indications Ordering Provide r Date CPAP Device 8cm LCW SYMONE Kevin 05/24/2020 Lisinopril 5mg Tablets 1 po q d Unknown Atorvastatin Calcium 10mg Tablets 1 po qd Unknown Aspirin 325mg Tablets 1 by mouth every day Unknown Immunizations CPT Code Status Date Vaccine Lot # [id number] Given 06/04/2014 Influenza Virus Split 3 Yrs And Above For Intramuscular Use [id number] Refused 06/10/2015 Influenza Virus Split 3 Yrs And Above For Intramuscular Use Vital Signs Date Vital Result Comment 06/07/2021 3:27pm BP Systolic 112 mmHg BP Diastolic 68 mmHg Heart Rate 66 /min O2 % BldC Oximetry 96 % Height 72.5 inches 6'0.50" Weight 206.00 lb BMI (Body Mass Index) 27.6 kg/m2 [place] Body Weight 178 lb Weight 93.442 kg BSA (Body Surface Area) 2.17 m2 11/30/2020 10:50am BP Systolic 131 mmHg BP Diastolic 68 mmHg Heart Rate 58 /min O2 % BldC Oximetry 98 % Respiratory Rate 16 /min Body Temperature 97.6 F Height 72.5 inches 6'0.50" Weight 212.00 lb BMI (Body Mass Index) 28.4 kg/m2 [place] Body Weight 178 lb Weight 96.163 kg BSA (Body Surface Area) 2.20 m2 Results Description No Information Available Procedures Date Code Description Status 06/07/2021 08713 Office/Outpatient Established Lo w MDM 20-29 Min Completed Medical Devices Description No Information Available Encounters Type Date Location Provider Dx Diagnosis Office Visit 06/07/2021 3:30p [facility] Pulmonary/Thoracic SYMONE [place] G47.33 Obstructive sleep apnea (adult) (pediatr ic) Assessments Date Code Description Provider 06/07/2021 G47.33 Obstructive sleep apnea (adult) (pediatric) SYMONE Kevin Plan of Treatment Future Appointment(s):* 06/08/2022 3:30 pm - SYMONE Kevin at [facility] Pulmonary/Thoracic 06/07/2021 - SYMONE Kevin* G47.33 Obstructive sleep apnea (adult) (pediatric) * * Follow up:* Follow up in 12 months with compliance report for RODNEY-30 Functional Status Description No Information Available Mental Status Description No Information Available Referrals Description No Information Available
--- OUTSIDE RECORDS SUMMARY | 2021-07-21 10:05 | CCD | Continuity of Care Document ---
Author Author Sagar RUSSELL AN[facility] Organization Unknown Address [address] [place] [address] Phone [phone] Care Team Providers Care Firearms Specialist Name Role Phone Dann Encarnacion M.D. [facility] [place] [phone] Problems Active Problems Provider Date Allergic rhinitis Radha Russell A.NMatt Onset: 06/11/2014 Obstructive sleep apnea [...] Smoker Smoking Status Reviewed: 06/07/21 Non Smoker Allergies, Adverse Reactions, Alerts Description No Known Drug Allergies Medications Active Medications SIG Qnty Indications Ordering Provide r Date CPAP Device 8cm LCW SYOMNE Kevin 05/24/2020 Lisinopril 5mg Tablets 1 po q d Unknown Atorvastatin Calcium 10mg Tablets 1 po qd Unknown Aspirin 325mg Tablets 1 by mouth every day Unknown Immunizations CPT Code Status Date Vaccine Lot # [id number] Given 06/04/2014 Influenza Virus Split 3 Yrs And Above For Intramuscular Use [id number] Refused 06/10/2015 Influenza Virus Split 3 Yrs And Above For Intramuscular Use Vital Signs Date Vital Result Comment 06/07/2021 3:27pm BP Systolic 112 mmHg BP Diastolic 68 mmHg Heart Rate 66 /min O2 % BldC Oximetry 96 % Height 72.5 inches 6'0.50" Weight 206.00 lb BMI (Body Mass Index) 27.6 kg/m2 Alpha Body Weight 178 lb Weight 93.442 kg BSA (Body Surface Area) 2.17 m2 11/30/2020 10:50am BP Systolic 131 mmHg BP Diastolic 68 mmHg Heart Rate 58 /min O2 % BldC Oximetry 98 % Respiratory Rate 16 /min Body Temperature 97.6 F Height 72.5 inches 6'0.50" Weight 212.00 lb BMI (Body Mass Index) 28.4 kg/m2 Alpha Body Weight 178 lb Weight 96.163 kg BSA (Body Surface Area) 2.20 m2 Results Description No Information Available Procedures Description No Information Available Medical Devices Description No Information Available Encounters Description No Information Available Assessments Date Code Description Provider 06/07/2021 G47.33 Obstructive sleep apnea (adult) (pediatric) SYMONE Kevin Plan of Treatment Future Appointment(s):* 06/08/2022 3:30 pm - SYMONE Kevin at [facility] Pulmonary/Thoracic 06/07/2021 - SYMONE Kevin* G47.33 Obstructive sleep apnea (adult) (pediatric) * * Follow up:* Follow up in 12 months with compliance report for RODNEY-30 Functional Status Description No Information Available Mental Status Description No Information Available Referrals Description No Information Available
--- OUTSIDE RECORDS SUMMARY | 2021-07-21 10:06 | CCD ---
Author Author [facility] Organization [facility] Address Unknown Phone Unavailable Care Team Providers Care District Plant Supervisor Name Role Phone Dann Encarnacion Unavailable PROBLEMS Type Condition ICD9-CM Code [id number] Code Onset Dates Condition S tatus W/U Status Risk SNOMED Code Notes Problem Osteoarthritis of knees, bilateral M17.0 Activ e confirmed 071592072 Problem RODNEY (obstructive sleep apnea) G47.33 Active confirm ed 19905185 Problem Pure hypercholesterolemia E78.0 Active confirmed 158599863 Problem Need for prophylactic vaccination and inoculatio n against influenza Z23 Active confirmed 75898905 Problem Essential hypertension I10 Active confirmed 99248696 Problem Gout involving toe of right foot, unspecified cause, unspecified chronicity M10.9 Active confirmed 262265350 Problem Low back pain M54.5 Active confirmed 452017 007 Problem Other chronic pain G89.29 Active confirmed 8 9245427 Problem Medicare annual wellness visit, subsequent Z00.00 Active confirmed 299437288 Problem Status post total right knee replacement Z96.651 Active confirmed 8889179732671 Problem Chronic fatigue R53.82 Active confirmed 8422 9001 Problem Irritable bowel syndrome with both constipation and diarrh ea K58.2 Active confirmed 90149361 Problem Colon cancer screening Z12.11 Active confirmed 266256190 Problem Personal history of prostate cancer Z85.46 Acti ve confirmed 882033529 Problem Left carpal tunnel syndrome G56.02 Active conf irmed 357090564525193 Problem Longstanding persistent atrial fibrillation I48.11 Active confirmed 663770967 Problem Pure hypercholesterolemia, unspecified E78.00 A ctive confirmed 501364053 Problem Acute gout involving toe of left foot, unspecified cause M10.9 Active confirmed 807150271 ALLERGIES Allergen (clinical drug ingredient) Drug/Non Drug Allergy do cumented on EMR Reaction Allergy Type Onset Date Status bees in the past swelling Non Drug Allergy Ac tive Wood wood congestion Non Drug Allergy Active ENCOUNTERS from 1950 to 2021-05-17 Encounter Location Date Provider Diagnosis [facility] Liban TAYLOR [phone] [place] [address] 13 May, 2021 Dann Encarnacion IMMUNIZATIONS Vaccine Route Administration Date Status Influenza 18 yrs & older Flublok IM Intramuscular Jun 10, 2020 Administered Influenza 18 yrs & older Flublok IM Intramuscular Jun 13, 2019 Administered Influenza (High Dose 65 & up) Unknown Jun 06, 2017 Ad ministered Pneumococcal Adult 0.5mL Pneumovax 23 IM Intramuscular Aug 15 019 Administered TDAP 0.5mL (Boostrix) IM Intramuscular Aug 15, 2017 Administe red Pneumococcal 0.5mL Prevnar 13 Unknown Jul 20, 2016 Ad ministered Influenza 6mo & up Fluzone IM Intramuscular Aug 06, 2015 Admi nistered Influenza 6mo & up Fluzone IM Intramuscular Jun 05, 2014 Admi nistered SOCIAL HISTORY Tobacco Use: Social History Observation Description Date Details (start date - stop date) Never Smoker Sex Assigned At : Social History Observation Description Sex Assigned At Unknown Audit Question Answer Notes Total Score: 3 Interpretation: Alcohol Education Sexual Hx: Question Answer Notes Had sex in the last 12 months (vaginal, oral, or anal)? Yes Have you ever had an STD? Yes with Women only Use protection? Yes GC? Yes How often? All of the time Drug and Alcohol Question Answer Notes Total Score: 0 Interpretation: No problems reported Alcohol Screening: Question Answer Notes Did you have a drink containing alcohol in the past year? Ye s Points 6 Interpretation Positive How often did you have six or more drinks on one occas ion in the past year? Less than monthly (1 point) How many drinks did you have on a typica l day when you were drinking in the past year? 3 or 4 (1 point) How often did you have a drink containing alcohol in t he past year? Four or more times a week (4 points) BMI Care Goal Follow-Up Question Answer Notes Above Normal BMI Follow-Up Dietary management educatio n, guidance, and counseling Tobacco Use: Question Answer Notes Are you a: never smoker updated 09/23/2020 Additional Findings: Tobacco User never a smoker REASON FOR REFERRAL No Information VITAL SIGNS No information MEDICATIONS Medication SIG (Take, Route, Frequency, Duration) Notes Start Da te End Date Status Lidocaine 5 % 1 patch to skin remove after 12 hours Externally Once a day prn Active Lisinopril 5 MG 1 tablet Orally Once a day Feb, Active Amoxicillin-Pot Clavulanate 875-125 MG 1 tablet Orally every 12 hrs for 10 day(s) Sep, Not-Taking tiZANidine HCl 4 MG 1 capsule as needed Orally Three times a day Not-Taking Iron 90 (18 Fe) MG 1 tablet Orally Once a day Active [place] 3 1000 MG 1 capsule Orally Once a day Not-Taking Garlic 100 MG as directed Orally Act mireya Aspirin 325 MG 1 tablet Orally Once a day Active Colcrys 0.6 MG 1 tablet Orally bid until pain resolves or diarr hea develops Feb, Active Lipitor 10 mg 1 tablet orally daily Active PROCEDURES No Information RESULTS No Results REASON FOR VISIT left ankle pain MEDICAL (GENERAL) HISTORY Type Description Date Medical History back pain Medical History HTN Medical History hypercholesterolemia Medical History RODNEY, sleep study 10 Apr 2014, fit test same month, now on CPAP, 8 cm H20 Medical History COLONOSCOPY 08/04/2010 Surgical History TONSILECTOMY Surgical History PROSTATE BX (Dr. Mae) Surgical History colonoscopy 2009 Surgical History BX left shoulder blade lower back DX me lanoma Surgical History BCC on head 05/2018 Surgical History right total knee replacement 02/18/2019 Surgical History carpal tunnel and ulner nerve 08/2020 Goals Section No Information Health Concerns No Information MEDICAL EQUIPMENT No Information MENTAL STATUS No Information FUNCTIONAL STATUS No Information ASSESSMENTS No Information PLAN OF TREATMENT Medication Medication Name Sig Start Date Stop Date Lidocaine 5 % 1 patch to skin remove after 12 hours Externally Once a day prn Aspirin 325 MG 1 tablet Orally Once a day Colcrys 0.6 MG 1 tablet Orally bid until pain resolves or diarrhea develops Feb, Garlic 100 MG as directed Orally Lipitor 10 mg 1 tablet orally daily Iron 90 (18 Fe) MG 1 tablet Orally Once a day Lisinopril 5 MG 1 tablet Orally Once a day Feb, Next Appt Details Provider Name:Dann Encarnacion, 2021-05-18 08 :00:00 AM, [address], , [place], [address], Provider Name:Dann Encarnacion, 2021-09-28 09 :30:00 AM, [address], , [place], [address], Insurance Providers Payer Name Payer Address Payer Phone Insured Name Patient Relati onship to Insured Coverage Start Date Coverage End Date MEDICARE Part A and B [address] [facility] [phone] CECY HARDING 2004 [facility] [address] [facility] [id number] CECY HARDING
--- OUTSIDE RECORDS SUMMARY | 2021-07-21 10:06 | CCD ---
Author Author [facility] Organization [facility] Address Unknown Phone Unavailable Care Team Providers Care Waiter/Waitress Take Out Name Role Phone Dann Encarnacion Unavailable PROBLEMS Type Condition ICD9-CM Code QJC70-JZ Code Onset Dates Condition S tatus W/U Status Risk SNOMED Code Notes Problem Osteoarthritis of knees, bilateral M17.0 Activ e confirmed 438692406 Problem RODNEY (obstructive sleep apnea) G47.33 Active confirm ed 05401666 Problem Pure hypercholesterolemia E78.0 Active confirmed 137198585 Problem Need for prophylactic vaccination and inoculatio n against influenza Z23 Active confirmed 94133098 Problem Essential hypertension I10 Active confirmed 34207198 Problem Gout involving toe of right foot, unspecified cause, unspecified chronicity M10.9 Active confirmed 903655142 Problem Low back pain M54.5 Active confirmed 146641 007 Problem Other chronic pain G89.29 Active confirmed 8 4633537 Problem Medicare annual wellness visit, subsequent Z00.00 Active confirmed 412581481 Problem Status post total right knee replacement Z96.651 Active confirmed 6556496244379 Problem Chronic fatigue R53.82 Active confirmed 8422 9001 Problem Irritable bowel syndrome with both constipation and diarrh ea K58.2 Active confirmed 68518070 Problem Colon cancer screening Z12.11 Active confirmed 017694403 Problem Personal history of prostate cancer Z85.46 Acti ve confirmed 111422134 Problem Left carpal tunnel syndrome G56.02 Active conf irmed 505120145573865 Problem Longstanding persistent atrial fibrillation I48.11 Active confirmed 300093572 Problem Pure hypercholesterolemia, unspecified E78.00 A ctive confirmed 769610596 Problem Acute gout involving toe of left foot, unspecified cause M10.9 Active confirmed 246035032 ALLERGIES Allergen (clinical drug ingredient) Drug/Non Drug Allergy do cumented on EMR Reaction Allergy Type Onset Date Status Bee Sting swelling Drug Allergy Active Wood wood congestion Non Drug Allergy Active ENCOUNTERS from 1950 to 2021-05-20 Encounter Location Date Provider Diagnosis [facility] Liban TAYLOR [phone] [place] [address] May, 2021 Dann Encarnacion Hematoma T14.8XXA and Pain of left lower extremity M79.605 IMMUNIZATIONS Vaccine Route Administration Date Status Pfizer #1 dose COVID-19 SARSCOV2 VAC 30MCG/0.3ML IM Unknown Oct 28, 2020 Administered Influenza 18 yrs & older Flublok IM Intramuscular Jun 10, 2020 Administered Influenza 18 yrs & older Flublok IM Intramuscular Jun 13, 2019 Administered Influenza (High Dose 65 & up) Unknown Jun 06, 2017 Ad ministered Pneumococcal Adult 0.5mL Pneumovax 23 IM Intramuscular Aug 15 Administered TDAP 0.5mL (Boostrix) IM Intramuscular Aug 15, 2017 Administe red Pfizer #2 dose COVID-19 SARSCOV2 VAC 30MCG/0.3ML IM Unknown November 18, 2020 Administered Pneumococcal 0.5mL Prevnar 13 Unknown Jul 20, [...] Unknown Audit Question Answer Notes Total Score: 6 Interpretation: Alcohol Education Sexual Hx: Question Answer [...] Notes Are you a: never smoker updated 05/18/2021 Additional Findings: Tobacco User never a smoker REASON FOR REFERRAL No Information VITAL SIGNS Weight 201.8 lbs May, Height 6'1" in May, BMI 26.62 kg/m2 May, Heart Rate 78 /min May, Respiratory Rate 19 /min May, Temperature 97.8 degrees Fahrenheit May, Oximetry 97RA May, Blood pressure systolic 130 mm Hg May, Blood pressure diastolic 74 mm Hg May, MEDICATIONS Medication SIG (Take, Route, Frequency, Duration) Notes Start Da te End Date Status Colcrys 0.6 MG 1 tablet Orally bid until pain resolves or diarr hea develops Feb, Active Aspirin 325 MG 1 tablet Orally Once a day Active Lipitor 10 mg 1 tablet orally daily Active Lidocaine 5 % 1 patch to skin remove after 12 hours Externally Once a day prn Active tiZANidine HCl 4 MG 1 capsule as needed Orally Three times a day Not-Taking Lisinopril 5 MG 1 tablet Orally Once a day Feb, Active Amoxicillin-Pot Clavulanate 875-125 MG 1 tablet Orally every 12 hrs for 10 day(s) Sep, Not-Taking Garlic 100 MG as directed Orally Act mireya Cephalexin 500 MG 1 capsule Orally Four times a day for 5 day(s) May, Active Iron 90 (18 Fe) MG 1 tablet Orally Once a day Active [place] 3 1000 MG 1 capsule Orally Once a day Not-Taking PROCEDURES No Information RESULTS No Results REASON [...] No Information FUNCTIONAL STATUS No Information ASSESSMENTS Encounter Date Diagnosis Assessment Notes Treatment Notes Treatm ent Clinical Notes May, Hematoma (ICD-10 - T14.8XXA) compression, ice, elevation to reduce swelling. May, Pain of left lower extremity (ICD-10 - M79.605) PLAN OF TREATMENT Medication Medication Name Sig Start Date Stop Date Cephalexin 500 MG 1 capsule Orally Four times a day for 5 day(s) May, Treatment Notes Assessment Notes Clinical Notes Hematoma compression, ice, elevation to reduce sw elling. Future Test Test Name Order Date YUNIOR TIBIA/FIBIA AP/LAT [id number] Next Appt Details prn Reason: Provider Name:Dann Encarnacion, 2021-09-28 09 :30:00 AM, [address] [facility] [facility], , [place], [address], Insurance Providers Payer Name Payer Address Payer Phone Insured Name Patient Relati onship to Insured Coverage Start Date Coverage End Date MEDICARE Part A and B [address] [facility] [phone] CECY HARDING [address] [facility] [phone] [facility] [phone] CECY HARDING [facility] [address] [facility] [id number] CECY HARDING
--- OUTSIDE RECORDS SUMMARY | 2021-07-21 10:07 | CCD ---
Author Author [facility] Address Unknown Phone Unavailable Care Team Providers Care Courier Driver Name Role Phone Leda, L Radha ENGINEERING OPERATOR Unavailable Unavailable Leda, L Radha ENGINEERING OPERATOR Unavailable Unavailable Leda, L Radha ENGINEERING OPERATOR Unavailable Unavailable Leda, L Radha ENGINEERING OPERATOR Unavailable Unavailable Leda, L Radha ENGINEERING OPERATOR Unavailable Unavailable Leda, L Radha ENGINEERING OPERATOR Unavailable Unavailable Leda, L Radha ENGINEERING OPERATOR Unavailable Unavailable Leda, L Radha ENGINEERING OPERATOR Unavailable Unavailable Leda, L Radha ENGINEERING OPERATOR Unavailable Unavailable Leda, L Radha ENGINEERING OPERATOR Unavailable Unavailable Leda, L Radha ENGINEERING OPERATOR Unavailable Unavailable Leda, L Radha ENGINEERING OPERATOR Unavailable Unavailable Leda, L Radha ENGINEERING OPERATOR Unavailable Unavailable Leda, L Radha ENGINEERING OPERATOR Unavailable Unavailable Leda, L Radha ENGINEERING OPERATOR Unavailable Unavailable Leda, L Radha ENGINEERING OPERATOR Unavailable Unavailable Leda, L Radha ENGINEERING OPERATOR Unavailable Unavailable Leda, L Radha ENGINEERING OPERATOR Unavailable Unavailable Leda, L Radha ENGINEERING OPERATOR Unavailable Unavailable Leda, L Radha ENGINEERING OPERATOR Unavailable Unavailable Leda, L Radha ENGINEERING OPERATOR Unavailable Unavailable Leda, L Radha ENGINEERING OPERATOR Unavailable Unavailable Leda, L Radha ENGINEERING OPERATOR Unavailable Unavailable Leda, L Radha ENGINEERING OPERATOR Unavailable Unavailable Leda, L Radha ENGINEERING OPERATOR Unavailable Unavailable Santa Aguilera MD Unavailable Unavailable Santa Aguilera MD Unavailable Unavailable Santa Aguilera MD Unavailable Unavailable Santa Aguilera MD Unavailable Unavailable Santa Aguilera MD Unavailable Unavailable WillySanta shelley MD Unavailable Unavailable WillySanta shelley MD Unavailable Unavailable WillySanta MD Unavailable Unavailable WillySanta MD Unavailable Unavailable WillySanta shelley MD Unavailable Unavailable Santa Aguilera MD Unavailable Unavailable Santa Aguilera MD Unavailable Unavailable WillySanta MD Unavailable Unavailable Santa Aguilera MD Unavailable Unavailable Santa Aguilera MD Unavailable Unavailable Santa Aguilera MD Unavailable Unavailable Santa Aguilera MD Unavailable Unavailable Santa Aguilera MD Unavailable Unavailable Santa Aguilera MD Unavailable Unavailable Santa Aguilera MD Unavailable Unavailable Santa Aguilera MD Unavailable Unavailable Santa Aguilera MD Unavailable Unavailable Santa Aguilera MD Unavailable Unavailable Santa Aguilera MD Unavailable Unavailable Santa Aguilera MD Unavailable Unavailable Santa Aguilera MD Unavailable Unavailable Santa Aguilera MD Unavailable Unavailable Santa Aguilera MD Unavailable Unavailable Santa Aguilera MD Unavailable Unavailable Santa Aguilera MD Unavailable Unavailable Santa Aguilera MD Unavailable Unavailable Santa Aguilera MD Unavailable Unavailable Santa Aguilera MD Unavailable Unavailable Santa Aguilera MD Unavailable Unavailable Santa Aguilera MD Unavailable Unavailable Santa Aguilera MD Unavailable Unavailable Santa Aguilera MD Unavailable Unavailable Santa Aguilera MD Unavailable Unavailable Santa Aguilera MD Unavailable Unavailable Santa Aguilera MD Unavailable Unavailable Santa Aguilera MD Unavailable Unavailable Santa Aguilera MD Unavailable Unavailable aSnta Aguilera MD Unavailable Unavailable Santa Aguilera MD Unavailable Unavailable Santa Aguilera MD Unavailable Unavailable Santa Aguilera MD Unavailable Unavailable Santa Aguilera MD Unavailable Unavailable Santa Aguilera MD Unavailable Unavailable Santa Aguilera MD Unavailable Unavailable Santa Aguilera MD Unavailable Unavailable Santa Aguilera MD Unavailable Unavailable Fish B Dawood ARGUETA Unavailable Unavailable Fish B Dawood ARGUETA Unavailable Unavailable Fish B Dawood ARGUETA Unavailable Unavailable Fish, B Dawood ARGUETA Unavailable Unavailable Fish, B Dawood ARGUETA Unavailable Unavailable Fish, B Dawood ARGUETA Unavailable Unavailable Fish, B Dawood ARGUETA Unavailable Unavailable Fish, B Dawood ARGUETA Unavailable Unavailable Fish, B Dawood ARGUETA Unavailable Unavailable Fish, B Dawood ARGUETA Unavailable Unavailable Fish, B Dawood ARGUETA Unavailable Unavailable Fish, B Dawood ARGUETA Unavailable Unavailable Fish, B Dawood ARGUETA Unavailable Unavailable Fish, B Dawood ARGUETA Unavailable Unavailable Fish, B Dawood ARGUETA Unavailable Unavailable Fish, B Dawood ARGUETA Unavailable Unavailable Fish, B Dawood ARGUETA Unavailable Unavailable Fish, B Dawood ARGUETA Unavailable Unavailable Fish, B Dawood ARGUETA Unavailable Unavailable Fish, B Dawood ARGUETA Unavailable Unavailable Fish, B Dawood ARGUETA Unavailable Unavailable Fish, B Dawood ARGUETA Unavailable Unavailable Fish, B Dawood ARGUETA Unavailable Unavailable Fish, B Dawood ARGUETA Unavailable Unavailable Fish, B Dawood ARGUETA Unavailable Unavailable Fish, B Dawood ARGUETA Unavailable Unavailable Fish, B Dawood ARGUETA Unavailable Unavailable Fish, B Dawood ARGUETA Unavailable Unavailable Fish, B Dawood ARGUETA Unavailable Unavailable Fish, B Dawood ARGUETA Unavailable Unavailable Fish, B Dawood ARGUETA Unavailable Unavailable Fish, B Dawood ARGUETA Unavailable Unavailable Fish, B Dawood ARGUETA Unavailable Unavailable Fish, B Dawood ARGUETA Unavailable Unavailable Fish, B Dawood ARGUETA Unavailable Unavailable Fish, B Dawood ARGUETA Unavailable Unavailable Fish, B Dawood ARGUETA Unavailable Unavailable Fish, B Dawood ARGUETA Unavailable Unavailable Fish, B Dawood ARGUETA Unavailable Unavailable Fish, B Dawood ARGUETA Unavailable Unavailable Fish, B Dwaood ARGUETA Unavailable Unavailable Fish, B Dawood ARGUETA Unavailable Unavailable Fish, B Dawood ARGUETA Unavailable Unavailable Fish, B Dawood ARGUETA Unavailable Unavailable Fish, B Dawood ARGUETA Unavailable Unavailable Fish, B Dawood ARGUETA Unavailable Unavailable Fish, B Dawood ARGUETA Unavailable Unavailable Fish, B Dawood ARGUETA Unavailable Unavailable Fish, B Dawood ARGUETA Unavailable Unavailable Fish, B Dawood ARGUETA Unavailable Unavailable Fish, B Dawood ARGUETA Unavailable Unavailable Fish, B Dawood ARGUETA Unavailable Unavailable Fish, B Dawood ARGUETA Unavailable Unavailable Fish, B Dawood ARGUETA Unavailable Unavailable Fish, B Dawood ARGUETA Unavailable Unavailable Fish, B Dawood ARGUETA Unavailable Unavailable Symenow, Dianne PANDA Unavailable Unavailable Symenow, Dianne PANDA Unavailable Unavailable Symenow, Dianne PANDA Unavailable Unavailable Symenow, Dianne PANDA Unavailable Unavailable Symenow, Dianne PANDA Unavailable Unavailable Symenow, Dianne Analilia PA Unavailable Unavailable Symenow, Dianne Analilia PA Unavailable Unavailable Symenow, Dianne Analilia PA Unavailable Unavailable Symenow, Dianne Analilia PA Unavailable Unavailable Symenow, Dianne Analilia PA Unavailable Unavailable Symenow, Dianne Analilia PA Unavailable Unavailable Symenow, Dianne Analilia PA Unavailable Unavailable Symenow, Dianne Analilia PA Unavailable Unavailable Symenow, Dianne Analilia PA Unavailable Unavailable Symenow, Dianne Analilia PA Unavailable Unavailable Symenow, Dianne Analilia PA Unavailable Unavailable Symenow, Dianne Analilia PA Unavailable Unavailable Symenow, Dianne Analilia PA Unavailable Unavailable Symenow, Dianne Analilia PA Unavailable Unavailable Symenow, Dianne Analilia PA Unavailable Unavailable Symenow, Dianne Analilia PA Unavailable Unavailable Symenow, Dianne Analilia PA Unavailable Unavailable Symenow, Dianne Analilia PA Unavailable Unavailable Symenow, Dianne Analilia PA Unavailable Unavailable Symenow, Dianne Analilia PA Unavailable Unavailable Symenow, Dianne Analilia PA Unavailable Unavailable Symenow, Dianne Analilia PA Unavailable Unavailable Symenow, Dianne Analilia PA Unavailable Unavailable Symenow, Dianne Analilia PA Unavailable Unavailable Symenow, Dianne Analilia PA Unavailable Unavailable Symenow, Dianne Analilia PA Unavailable Unavailable Symenow, Dianne Analilia PA Unavailable Unavailable Symenow, Dianne Analilia PA Unavailable Unavailable Symenow, Dianne Analilia PA Unavailable Unavailable Soy HEARN MD Unavailable Unavailable Soy HEARN MD Unavailable Unavailable Soy HEARN MD Unavailable Unavailable Soy HEARN MD Unavailable Unavailable Soy HEARN MD Unavailable Unavailable Soy HEARN MD Unavailable Unavailable Soy HEARN MD Unavailable Unavailable Soy HEARN MD Unavailable Unavailable Soy HEARN MD Unavailable Unavailable Soy HEARN MD Unavailable Unavailable Soy HEARN MD Unavailable Unavailable Soy HEARN MD Unavailable Unavailable Soy HEARN MD Unavailable Unavailable Soy HEARN MD Unavailable Unavailable Soy HEARN MD Unavailable Unavailable Soy HEARN MD Unavailable Unavailable Soy HEARN MD Unavailable Unavailable HEARNSoy MD Unavailable Unavailable HEARN E HERLINDA ARGUETA Unavailable Unavailable HEARN, E HERLINDA ARGUETA Unavailable Unavailable HEARN, E HERLINDA ARGUETA Unavailable Unavailable HEARN, E HERLIDNA ARGUETA Unavailable Unavailable HEARN, E HERLINDA ARGUETA Unavailable Unavailable HEARN, E HERLINDA ARGUETA Unavailable Unavailable HEARN, E HERLINDA ARGUETA Unavailable Unavailable HEARN, E HERLINDA ARGUETA Unavailable Unavailable HEARN, E HERLINDA ARGUETA Unavailable Unavailable HEARN, E HERLINDA ARGUETA Unavailable Unavailable HEARN, E HERLINDA ARGUETA Unavailable Unavailable HEARN, E HERLINDA ARGUETA Unavailable Unavailable HEARN, E HERLINDA ARGUETA Unavailable Unavailable HEARN, E HERLINDA ARGUETA Unavailable Unavailable HEARN, E HERLINDA ARGUETA Unavailable Unavailable HEARN, E HERLINDA ARGUETA Unavailable Unavailable HEARN, E HERLINDA ARGUETA Unavailable Unavailable HEARN, E HERLINDA ARGUETA Unavailable Unavailable HEARN, E HERLINDA ARGUETA Unavailable Unavailable HEARN, E HERLINDA ARGUETA Unavailable Unavailable HEARN, E HERLINDA ARGUETA Unavailable Unavailable HEARN, E HERLINDA ARGUETA Unavailable Unavailable HEARN, E HERLINDA ARGUETA Unavailable Unavailable HEARN, E HERLINDA ARGUETA Unavailable Unavailable HEARN, E HERLINDA ARGUETA Unavailable Unavailable HEARN, E HERLINDA ARGUETA Unavailable Unavailable HEARN, E HERLINDA ARGUETA Unavailable Unavailable HEARN, E HERLINDA ARGUETA Unavailable Unavailable HEARN, E HERLINDA ARGUETA Unavailable Unavailable HEARN, E HERLINDA ARGUETA Unavailable Unavailable HEARN, E HERLINDA ARGUETA Unavailable Unavailable HEARN, E HERLINDA ARGUETA Unavailable Unavailable HEARN, E HERLINDA ARGUETA Unavailable Unavailable HEARN, E HERLINDA ARGUETA Unavailable Unavailable HEARN, E HERLINDA ARGUETA Unavailable Unavailable HEARN, E HERLINDA ARGUETA Unavailable Unavailable Sanchez, A Sandra ENGINEERING OPERATOR Unavailable Unavailable Sanchez, A Sandra ENGINEERING OPERATOR Unavailable Unavailable Sanchez, A Sandra ENGINEERING OPERATOR Unavailable Unavailable Sanchez, A Sandra ENGINEERING OPERATOR Unavailable Unavailable Sanchez, A Sandra ENGINEERING OPERATOR Unavailable Unavailable Sanchez, A Sandra ENGINEERING OPERATOR Unavailable Unavailable Sanchez, A Sandra ENGINEERING OPERATOR Unavailable Unavailable Sanchez, A Sandra ENGINEERING OPERATOR Unavailable Unavailable Sanchez, A Sandra ENGINEERING OPERATOR Unavailable Unavailable Sanchez, A Sandra ENGINEERING OPERATOR Unavailable Unavailable Sanchez, A Sandra ENGINEERING OPERATOR Unavailable Unavailable Sanchez, A Sandra ENGINEERING OPERATOR Unavailable Unavailable Sanchez, A Sandra ENGINEERING OPERATOR Unavailable Unavailable Sanchez, A Sandra ENGINEERING OPERATOR Unavailable Unavailable Sanchez, A Sandra ENGINEERING OPERATOR Unavailable Unavailable Sanchez, A Sandra ENGINEERING OPERATOR Unavailable Unavailable Sanchez, A Sandra ENGINEERING OPERATOR Unavailable Unavailable Sanchez, A Sandra ENGINEERING OPERATOR Unavailable Unavailable Sanchez, A Sandra ENGINEERING OPERATOR Unavailable Unavailable Sanchez, A Sandra ENGINEERING OPERATOR Unavailable Unavailable Sanchez, A Sandra ENGINEERING OPERATOR Unavailable Unavailable Sanchez, A Sandra ENGINEERING OPERATOR Unavailable Unavailable Sanchez, A Sandra ENGINEERING OPERATOR Unavailable Unavailable Sanchez, A Sandra ENGINEERING OPERATOR Unavailable Unavailable Sanchez, A Sandra ENGINEERING OPERATOR Unavailable Unavailable Sanchez, A Sandra ENGINEERING OPERATOR Unavailable Unavailable Sanchez, A Sandra ENGINEERING OPERATOR Unavailable Unavailable Sanchez, A Sandra ENGINEERING OPERATOR Unavailable Unavailable Sanchez, A Sandra ENGINEERING OPERATOR Unavailable Unavailable Sanchez, A Sandra ENGINEERING OPERATOR Unavailable Unavailable Sanchez, A Sandra ENGINEERING OPERATOR Unavailable Unavailable Sanchez, A Sandra ENGINEERING OPERATOR Unavailable Unavailable Sanchez, A Sandra ENGINEERING OPERATOR Unavailable Unavailable Sanchez, A Sandra ENGINEERING OPERATOR Unavailable Unavailable Sanchez, A Sandra ENGINEERING OPERATOR Unavailable Unavailable Sanchez, A Sandra ENGINEERING OPERATOR Unavailable Unavailable Sanchez, A Sandra ENGINEERING OPERATOR Unavailable Unavailable Sanchez, A Sandra ENGINEERING OPERATOR Unavailable Unavailable Sanchez, A Sandra ENGINEERING OPERATOR Unavailable Unavailable Sanchez, A Sandra ENGINEERING OPERATOR Unavailable Unavailable Sanchez, A Sandra ENGINEERING OPERATOR Unavailable Unavailable Sanchez, A Sandra ENGINEERING OPERATOR Unavailable Unavailable Sanchez, A Sandra ENGINEERING OPERATOR Unavailable Unavailable Sancehz, A Sandra ENGINEERING OPERATOR Unavailable Unavailable Sanchez, A Sandra ENGINEERING OPERATOR Unavailable Unavailable Sanchez, A Sandra ENGINEERING OPERATOR Unavailable Unavailable Sanchez, A Sandra ENGINEERING OPERATOR Unavailable Unavailable Sanchez, A Sandra ENGINEERING OPERATOR Unavailable Unavailable Sanchez, A Sandra ENGINEERING OPERATOR Unavailable Unavailable Sanchez, A Sandra ENGINEERING OPERATOR Unavailable Unavailable Mollison, Bruno Hardwick MD Unavailable Unavailable Mollison, Bruno Hardwick MD Unavailable Unavailable Mollison, Bruno Hardwick MD Unavailable Unavailable Mollison, Bruno Hardwick MD Unavailable Unavailable Mollison, Bruno Hardwick MD Unavailable Unavailable Mollison, Bruno Hardwick MD Unavailable Unavailable Mollison, Bruno Hardwick MD Unavailable Unavailable Mollison, Bruno Hardwick MD Unavailable Unavailable Mollison, Bruno Hardwick MD Unavailable Unavailable Mollison, Bruno Hardwick MD Unavailable Unavailable Mollison, Bruno Hardwick MD Unavailable Unavailable Mollison, Bruon Hardwick MD Unavailable Unavailable Mollison, Bruno Hardwick MD Unavailable Unavailable Mollison, Bruno Hardwick MD Unavailable Unavailable Mollison, Bruno Hardwick MD Unavailable Unavailable Mollison, Bruno Hardwick MD Unavailable Unavailable Mollison, Bruno Hardwick MD Unavailable Unavailable Mollison, Bruno Hardwick MD Unavailable Unavailable Mollison, Bruno Hardwick MD Unavailable Unavailable Mollison, Bruno Hardwick MD Unavailable Unavailable Mollison, Bruno Hardwick MD Unavailable Unavailable Mollison, Bruno Hardwick MD Unavailable Unavailable Mollison, Bruno Hardwick MD Unavailable Unavailable Mollison, Bruno Hardwick MD Unavailable Unavailable Mollison, Bruno Hardwick MD Unavailable Unavailable Mollison, Bruno Hardwick MD Unavailable Unavailable Mollison, Bruno Hardwick MD Unavailable Unavailable Mollison, Bruno Hardwick MD Unavailable Unavailable Mollison, Bruno Hardwick MD Unavailable Unavailable Mollison, Bruno Hardwick MD Unavailable Unavailable Cathi Hooker PA Unavailable Unavailable Cathi Hooker PA Unavailable Unavailable Cathi Hooker PA Unavailable Unavailable Cathi Hooker PA Unavailable Unavailable Cathi Hooker PA Unavailable Unavailable Cathi Hooker PA Unavailable Unavailable Hooker, M Barratt PA Unavailable Unavailable Hooker, M Barratt PA Unavailable Unavailable Hooker, M Barratt PA Unavailable Unavailable Hooker, M Barratt PA Unavailable Unavailable Hooker, M Barratt PA Unavailable Unavailable Hooker, M Barratt PA Unavailable Unavailable Hooker, M Barratt PA Unavailable Unavailable Hooker, M Barratt PA Unavailable Unavailable Hooekr, M Barratt PA Unavailable Unavailable Hooker, M Barratt PA Unavailable Unavailable Hooker, M Barratt PA Unavailable Unavailable Hooker, M Barratt PA Unavailable Unavailable Hooker, M Barratt PA Unavailable Unavailable Hooker, M Barratt PA Unavailable Unavailable Hooker, M Barratt PA Unavailable Unavailable Hooker, M Barratt PA Unavailable Unavailable Hooker, M Barratt PA Unavailable Unavailable Hooker, M Barratt PA Unavailable Unavailable Hooker, M Barratt PA Unavailable Unavailable Hooker, M Barratt PA Unavailable Unavailable Hooker, M Barratt PA Unavailable Unavailable Hooker, M Barratt PA Unavailable Unavailable Hooker, M Barratt PA Unavailable Unavailable Castillo, A Phyl LEAD SOFTWARE ARCHITECT-BC Unavailable Unavailable Castillo, A Phyl LEAD SOFTWARE ARCHITECT-BC Unavailable Unavailable Castillo, A Phyl LEAD SOFTWARE ARCHITECT-BC Unavailable Unavailable Castillo, A Phyl LEAD SOFTWARE ARCHITECT-BC Unavailable Unavailable Castillo, A Phyl LEAD SOFTWARE ARCHITECT-BC Unavailable Unavailable Castillo, A Phyl LEAD SOFTWARE ARCHITECT-BC Unavailable Unavailable Castillo, A Phyl LEAD SOFTWARE ARCHITECT-BC Unavailable Unavailable Castillo, A Phyl LEAD SOFTWARE ARCHITECT-BC Unavailable Unavailable Castillo, A Phyl LEAD SOFTWARE ARCHITECT-BC Unavailable Unavailable Castillo, A Phyl LEAD SOFTWARE ARCHITECT-BC Unavailable Unavailable Castillo, A Phyl LEAD SOFTWARE ARCHITECT-BC Unavailable Unavailable Castillo, A Phyl LEAD SOFTWARE ARCHITECT-BC Unavailable Unavailable Castillo, A Phyl LEAD SOFTWARE ARCHITECT-BC Unavailable Unavailable Castillo, A Phyl LEAD SOFTWARE ARCHITECT-BC Unavailable Unavailable Castillo, A Phyl LEAD SOFTWARE ARCHITECT-BC Unavailable Unavailable Castillo, A Phyl LEAD SOFTWARE ARCHITECT-BC Unavailable Unavailable Castillo, A Phyl LEAD SOFTWARE ARCHITECT-BC Unavailable Unavailable Castillo, A Phyl LEAD SOFTWARE ARCHITECT-BC Unavailable Unavailable Castillo, A Phyl LEAD SOFTWARE ARCHITECT-BC Unavailable Unavailable Castillo, A Phyl LEAD SOFTWARE ARCHITECT-BC Unavailable Unavailable Castillo, A Phyl LEAD SOFTWARE ARCHITECT-BC Unavailable Unavailable Castillo, A Phyl LEAD SOFTWARE ARCHITECT-BC Unavailable Unavailable Castillo, A Phyl LEAD SOFTWARE ARCHITECT-BC Unavailable Unavailable Castillo, A Phyl LEAD SOFTWARE ARCHITECT-BC Unavailable Unavailable Castillo, A Phyl LEAD SOFTWARE ARCHITECT-BC Unavailable Unavailable Castillo, A Phyl LEAD SOFTWARE ARCHITECT-BC Unavailable Unavailable Castillo, A Phyl LEAD SOFTWARE ARCHITECT-BC Unavailable Unavailable Castillo, A Phyl LEAD SOFTWARE ARCHITECT-BC Unavailable Unavailable Castillo, A Phyl LEAD SOFTWARE ARCHITECT-BC Unavailable Unavailable Castillo, A Phyl LEAD SOFTWARE ARCHITECT-BC Unavailable Unavailable Castillo, A Phyl LEAD SOFTWARE ARCHITECT-BC Unavailable Unavailable Castillo, A Phyl LEAD SOFTWARE ARCHITECT-BC Unavailable Unavailable Re-disclosure Warning The records that you are about to access may contain information from federally-assisted alcohol or drug abuse programs. If such information is present, then the following federally mandated warning applies: This information has been disclosed to you from records protected by federal confidentiality rules (42 CFR part 2). The federal rules prohibit you from making any further disclosure of this information unless further disclosure is expressly permitted by the written consent of the person to whom it pertains or as otherwise permitted by 42 CFR part 2. A general authorization for the release of medical or other information is NOT sufficient for this purpose. The Federal rules restrict any use of the information to criminally investigate or prosecute any alcohol or drug abuse patient.The records that you are about to access may contain highly sensitive health information, the redisclosure of which is protected by Article 27-F of the [facility] Public Health law. If you continue you may have access to information: Regarding HIV / AIDS; Provided by facilities licensed or operated by the [facility] Office of Mental Health; or Provided by the [facility] Office for People With Developmental Disabilities. If such information is present, then the following [facility] mandated warning applies: This information has been disclosed to you from confidential records which are protected by state law. State law prohibits you from making any further disclosure of this information without the specific written consent of the person to whom it pertains, or as otherwise permitted by law. Any unauthorized further disclosure in violation of state law may result in a fine or fpc sentence or both. A general authorization for the release of medical or other information is NOT sufficient authorization for further disc losure. Family History Family Member Name Family Member Gender Family Member Status Date o f Status Description Data Source(s) Unknown Unknown Problem [facility] ([facility]) Encounters Encounter Providers Location Date Indications Data Source(s ) Outpatient Attender: Radha Michaels/Doris/Haroldo/Brisa 06/07/2021 03:30:00 PM EDT [facility] ([facility]) Outpatient Attender: Gerry Aguilera MD Main Office 05/27/2021 10:30:00 AM EDT [facility] ([facility]) [place] [address] [facility] [address] 05/18/2021 12:00:00 AM EDT eCW1 ([facility]) [place] [address] [facility] [address] 05/17/2021 12:00:00 AM EDT eCW1 ([facility]) Outpatient Attender: Antonieta PANDA Physical Therapy 02:30:00 PM EDT [facility] ([facility]) Outpatient Attender: Analilia PANDA Main Office 04/08/2021 12:45:00 PM EDT [facility] ([facility]) [place] [address] [facility] [address] 03/24/2021 12:00:00 AM EDT eCW1 ([facility]) Outpatient Attender: Ken PRESSLEY Main Office 0 03/15/2021 10:15:00 AM EDT [facility] ([facility]) OFFICE OUTPATIENT VISIT 15 MINUTES Attender: Dawood Napier MD Phys ical Therapy 02/03/2021 10:30:00 AM EDT [facility] ([facility]) Outpatient Attender: Ken PRESSLEY Main Office 0 01/19/2021 01:30:00 PM EDT [facility] ([facility]) Outpatient Attender: Antonieta PANDA Physical Therapy 02:45:00 PM EDT [facility] ([facility]) Outpatient Attender: Dawood Napier MD Physical Therapy 12/25/2020 1 1:30:00 AM EDT [facility] ([facility]) Outpatient Attender: Ronen Michaels/Doris/Haroldo/Re indl 11/30/2020 11:00:00 AM EDT [facility] ([facility]) Office Visit Attender: Ronen Michaels/Doris/Haroldo/Re indl 10/19/2020 08:45:00 AM EST [facility] ([facility]) Outpatient Attender: Ken Castillo [facility] Main Office 0 10/12/2020 10:15:00 AM EST [facility] ([facility]) [place] [address] [facility] [facility] [address] 09/23/2020 12:00:00 AM EST eCW1 ([facility]) Office Visit Attender: Sandra Sanchez NP Lilli[facility] 09/16/2020 07:30:00 AM EST [facility] Office Visit Attender: Ronen Michaels/Doris/Haroldo/Re indl 09/07/2020 08:00:00 AM EST [facility] ([facility]) Office Visit Attender: HERLINDA HEARN MD Main Office 08/14/2020 10:29:0 0 AM EST [facility] ([facility]) OFFICE OUTPATIENT VISIT 15 MINUTES Attender: Antonieta PANDA Physical Therapy 08/10/2020 12:45:00 PM EST [facility] ([facility]) Outpatient Attender: Analilia PANDA Main Office 07/24/2020 10:30:00 AM EST [facility] ([facility]) [place] [address] [facility] [address] 06/10/2020 12:00:00 AM EDT eCW1 ([facility]) Outpatient Attender: Radha Michaels/Doris/Haroldo/Reindl 06/02/2020 01:45:00 PM EDT [facility] [facility] Office Visit Attender: HERLINDA HEARN MD Main Office 06/01/2020 04:07:0 0 PM EDT [facility] ([facility]) Immunizations Vaccine Date Status Description Data Source(s) COVID-19 VACCINE Pfizer 06/19/2021 12:00:00 AM EDT completed [facility] Vaccine Series Complete: YESThis Data wa s Submitted to [facility] Via knowNormal. COVID-19 VACC, MRNA(PFIZER)/PF 06/19/2021 12:00:00 AM EDT completed [facility] Pfizer #2 dose COVID-19 SARSCOV2 VAC 30MCG/0.3ML IM 11/19/19 12:35:00 PM EDT completed eCW1 ([facility]) COVID-19 VACCINE Pfizer 11/18/2020 12:00:00 AM EDT completed [facility] Vaccine Series Complete: YESThis Data wa s Submitted to [facility] Via knowNormal. Pfizer #1 dose COVID-19 SARSCOV2 VAC 30MCG/0.3ML IM 10/28/19 12:34:00 PM EST completed eCW1 ([facility]) COVID-19 VACCINE Pfizer 10/28/2020 12:00:00 AM EST completed [facility] Vaccine Series Complete: NOThis Data was Submitted to [facility] Via knowNormal. influenza, recombinant, quadrIvalent,injectable, prese rvative free 06/10/2020 09:55:00 AM EDT completed eCW1 ([facility]) influenza, recombinant, quadrIvalent,injectable, prese rvative free 06/10/2020 09:55:00 AM EDT completed eCW1 ([facility]) influenza, recombinant, quadrIvalent,injectable, prese rvative free 06/10/2020 09:55:00 AM EDT completed eCW1 ([facility]) influenza, recombinant, quadrIvalent,injectable, prese rvative free 06/10/2020 09:55:00 AM EDT completed eCW1 ([facility]) influenza, recombinant, quadrIvalent,injectable, prese rvative free 06/10/2020 09:55:00 AM EDT completed eCW1 ([facility]) Medications Medication Brand Name Start Date Product Form Dose Route Admi nistrative Instructions Pharmacy Instructions Status Indications Reaction Description Data Source(s) 5 mg 06/18/2021 12:00:00 AM EDT tablet 90 TAKE ONE TABLET BY MOUTH AT BEDTIME TAKE ONE TABLET BY MOUTH AT BEDTIME SOLD: 06/20/2021 [facility] atorvastatin 10 MG Oral Tablet ATORVASTATIN CALCIUM 06/18/2021 1 2:00:00 AM EDT tablet 90 TAKE ONE TABLET BY MOUTH AT BEDT [place] TAKE ONE TABLET BY MOUTH AT BEDTIME SOLD: 06/20/2021 [facility] 1.479-0.188- 0.225 gram 05/27/2021 12:00:00 AM EDT tablet 24 DIRCTED DIRCTED SOLD: 06/20/2021 [facility] Sutab Sutab 05/27/2021 12:00:00 AM EDT active [facility] ([facility]) Cephalexin 500 MG Oral Capsule CEPHALEXIN 05/18/2021 12:00:00 AM EDT capsule 20 TAKE ONE CAPSULE BY MOUTH FOUR TIMES A DAY FOR 5 DAYS TAKE ONE CAPSULE BY MOUTH FOUR TIMES A DAY FOR 5 DAYS SOLD: 05/18/2021 [facility] Cephalexin 500 MG Oral Capsule Cephalexin 500 MG 05/18/2021 12:00:0 0 AM EDT 1.0 {capsule} active Cephalexin 500 MG eCW1 ([facility]) 0.4 mg 04/08/2021 12:00:00 AM EDT tablet, sublingual 25 PLACE ONE TABLET UNDER THE TONGUE EVERY 5 MINUTES FOR UP TO 3 DOSES NEEDED FOR CHEST PAIN. IF CHEST PAIN STILL PERSISTS CONTACT [address] ONE TABLET UNDER THE TONGUE EVERY 5 MINUTES FOR UP TO 3 DOSES NEEDED FOR CHEST PAIN. IF CHEST PAIN STILL PERSISTS CONTACT 911 SOLD: 04/12/2021 [facility] Multi Vitamin And Minerals 04/07/2021 12:00:00 AM EDT active [facility] ([facility]) 0.6 mg 03/24/2021 12:00:00 AM EDT tablet 20 TAKE ONE TABLET BY MOUTH TWO TIMES A DAY UNTIL PAIN RESOLVES OR DIARRHEA DEVELOPS TAKE ONE TABLET BY MOUTH TWO TIMES A DAY UNTIL PAIN RESOLVES OR DIARRHEA DEVELOPS SOLD: 05/05/2021 [facility] 0.6 mg 03/24/2021 12:00:00 AM EDT tablet 20 TAKE ONE TABLET BY MOUTH TWO TIMES A DAY UNTIL PAIN RESOLVES OR DIARRHEA DEVELOPS TAKE ONE TABLET BY MOUTH TWO TIMES A DAY UNTIL PAIN RESOLVES OR DIARRHEA DEVELOPS SOLD: 03/24/2021 [facility] meloxicam 15 MG Oral Tablet [Mobic] Mobic 12/28/2020 12:00:00 AM EDT ORAL active [facility] ([facility]) Methocarbamol 750 MG Oral Tablet Methocarbamol 12/28/2020 12:00:00 AM EDT active [facility] ([facility]) tramadol hydrochloride 50 MG Oral Tablet Tramadol HCL 12/28/2020 12:00:00 AM EDT active [facility] ([facility]) 500 mg 09/30/2020 12:00:00 AM EST capsule 30 TAKE ONE CAPSULE BY MOUTH THREE TIMES A DAY UNTIL GONE TAKE ONE CAPSULE BY MOUTH THREE TIMES A DAY UNTIL GONE SOLD: 09/30/2020 [facility] Amoxicillin 875 MG / Clavulanate 125 MG Oral Tablet Amoxicillin-Pot Clavulanate 875-125 MG Amoxicillin-Pot Clavulanate 875-125 MG 09/23/2020 12:00:00 AM ES T 1.0 {tablet} suspended Amoxicillin-Pot C lavulanate 875-125 MG eCW1 ([facility]) Amoxicillin 875 MG / Clavulanate 125 MG Oral Tablet Amoxicillin-Pot Clavulanate 875-125 MG Amoxicillin-Pot Clavulanate 875-125 MG 09/23/2020 12:00:00 AM ES T 1.0 {tablet} active Amoxicillin-Pot Cla vulanate 875-125 MG eCW1 ([facility]) 875-125 mg 09/23/2020 12:00:00 AM EST tablet 20 TAKE ONE TABLET BY MOUTH EVERY 12 HOURS FOR 10 DAYS TAKE ONE TABLET BY MOUTH EVERY 12 HOURS FOR 10 DAYS SOLD: 09/23/2020 [facility] Amoxicillin 875 MG / Clavulanate 125 MG Oral Tablet Amoxicillin-Pot Clavulanate 875-125 MG Amoxicillin-Pot Clavulanate 875-125 MG 09/23/2020 12:00:00 AM ES T 1.0 {tablet} suspended Amoxicillin-Pot C lavulanate 875-125 MG eCW1 ([facility]) Amoxicillin 875 MG / Clavulanate 125 MG Oral Tablet Amoxicillin-Pot Clavulanate 875-125 MG Amoxicillin-Pot Clavulanate 875-125 MG 09/23/2020 12:00:00 AM ES T 1.0 {tablet} suspended Amoxicillin-Pot C lavulanate 875-125 MG eCW1 ([facility]) 5-325 mg 08/11/2020 12:00:00 AM EST tablet 20 TAKE ONE TABLET BY MOUTH EVERY 4 HOURS NEEDED FOR POST OP PAIN MAXIMUM DAILY DOSE = 6 TABLETS TAKE ONE TABLET BY MOUTH EVERY 4 HOURS NEEDED FOR POST OP PAIN MAXIMUM DAILY DOSE = 6 TABLETS SOLD: 08/11/2020 [facility] 4 mg 08/10/2020 12:00:00 AM EST capsule 60 TAKE ONE CAPSULE BY MOUTH THREE TIMES A DAY TAKE ONE CAPSULE BY MOUTH THREE TIMES A DAY SOLD: 08/11/2020 [facility] 5-Fluorouracil 5%, Calcipotriene 0.005% Cream 08/04/2020 1 2:00:00 AM EST active [facility] ([facility]) 5 % 07/21/2020 12:00:00 AM EST cream 80 APPLY TO SHOULDERS, NECK, CHEST AND SCALP TWO TIMES A DAY APPLY TO SHOULDERS, NECK, CHEST AND SCALP TWO TIMES A DAY SOLD: 07/22/2020 [facility] Fluorouracil 50 MG/ML Topical Cream Fluorouracil 07/20/2020 12:00:00 AM EST active [facility] ([facility]) Acetaminophen 325 MG / Oxycodone Hydrochloride 5 MG Or al Tablet [Percocet] Percocet 07/09/2020 12:00:00 AM EST ORAL completed MED[facility] ([facility], ) Acetaminophen 325 MG / Oxycodone Hydrochloride 5 MG Or al Tablet [Percocet] Percocet 06/17/2020 12:00:00 AM EDT ORAL completed [facility] ([facility], ) atorvastatin 10 MG Oral Tablet ATORVASTATIN CALCIUM 06/12/2020 1 2:00:00 AM EDT tablet 90 TAKE ONE TABLET BY MOUTH AT BEDT HOLLY TAKE ONE TABLET BY MOUTH AT BEDTIME SOLD: 12/10/2020 [facility] 5 mg 06/12/2020 12:00:00 AM EDT tablet 90 TAKE ONE TABLET BY MOUTH AT BEDTIME TAKE ONE TABLET BY MOUTH AT BEDTIME SOLD: 03/17/2021 [facility] 5 mg 06/12/2020 12:00:00 AM EDT tablet 90 TAKE ONE TABLET BY MOUTH AT BEDTIME TAKE ONE TABLET BY MOUTH AT BEDTIME SOLD: 06/12/2020 [facility] 5 mg 06/12/2020 12:00:00 AM EDT tablet 90 TAKE ONE TABLET BY MOUTH AT BEDTIME TAKE ONE TABLET BY MOUTH AT BEDTIME SOLD: 09/17/2020 [facility] 5 mg 06/12/2020 12:00:00 AM EDT tablet 90 TAKE ONE TABLET BY MOUTH AT BEDTIME TAKE ONE TABLET BY MOUTH AT BEDTIME SOLD: 12/10/2020 [facility] atorvastatin 10 MG Oral Tablet ATORVASTATIN CALCIUM 06/12/2020 1 2:00:00 AM EDT tablet 90 TAKE ONE TABLET BY MOUTH AT BEDT HOLLY TAKE ONE TABLET BY MOUTH AT BEDTIME SOLD: 06/12/2020 [facility] atorvastatin 10 MG Oral Tablet ATORVASTATIN CALCIUM 06/12/2020 1 2:00:00 AM EDT tablet 90 TAKE ONE TABLET BY MOUTH AT BEDT HOLLY TAKE ONE TABLET BY MOUTH AT BEDTIME SOLD: 03/17/2021 [facility] atorvastatin 10 MG Oral Tablet ATORVASTATIN CALCIUM 06/12/2020 1 2:00:00 AM EDT tablet 90 TAKE ONE TABLET BY MOUTH AT BEDT HO[place] TAKE ONE TABLET BY MOUTH AT BEDTIME SOLD: 09/17/2020 [facility] CPAP 05/24/2020 12:00:00 AM EDT active MEDENT ([facility], ) Insurance Providers Payer name Policy type / Coverage type Policy ID Covered alliance party ID Covered alliance party's relationship to fang Policy Fang Plan Information MEDICARE [id number] Patient is Insured [id number] [facility] [id number] [facility]) Workers Compensation [id number] 2.0.1.262324.3.227.99.991.919397.0 Self [id number] [facility]) Workers Compensation [id number] Self [facility]) Workers Compensation [id number] 2.0.1.849323.3.227.99.991.651556.0 Self [id number] [facility] () Workers Compensation [id number] 2.0.1.768445.3.227.99.991.166256.0 Self [id number] [facility] () Workers Compensation [id number] 2.840.1.569917.3.227.99.991.823151.0 Self [id number] [facility] () Workers Compensation [id number] 2.0.1.321143.3.227.99.991.219939.0 Self [id number] [facility] Workers Compensation [id number] 2.16.840.1.578480.3.227.99.991.129133.0 Self [id number] [facility]) Workers Compensation [id number] 2.16.840.1.541822.3.227.99.991.967083.0 Self [id number] [facility]) Workers Compensation [id number] Self [id number] [facility]) Workers Compensation [id number] 2.16.840.1.521597.3.227.99.991.747266.0 Self [id number] [facility] Workers Compensation [id number] 2.16.840.1.181662.3.227.99.991.824129.0 Self [id number] [facility] Workers Compensation [id number] 2.16.840.1.928569.3.227.99.991.926712.0 Self [id number] [facility]) Workers Compensation [id number] 2.16.840.1.767046.3.227.99.991.809305.0 Self [id number] [facility] Workers Compensation [id number] 2.16.840.1.439908.3.227.99.991.351395.0 Self [id number] [facility] Workers Compensation [id number] Self [facility]) Workers Compensation [id number] 2.16.840.1.081122.3.227.99.991.516417.0 Self [id number] [facility]) Workers Compensation [id number] Self [id number] [facility]) Workers Compensation [id number] 2.16.840.1.513290.3.227.99.991.874839.0 Self [id number] [facility] Workers Compensation [id number] 2.16.840.1.449309.3.227.99.991.039843.0 Self [id number] [facility] Workers Compensation [id number] 2.16.840.1.867343.3.227.99.991.153192.0 Self [id number] [facility] Workers Compensation [id number] 2.16.840.1.743134.3.227.99.991.582923.0 Self [id number] [facility] Workers Compensation [id number] 2.16.840.1.023566.3.227.99.991.261635.0 Self [id number] [facility] Workers Compensation [id number] 2.16.840.1.055629.3.227.99.991.286545.0 Self [id number] [facility] Workers Compensation [id number] 2.16.840.1.332951.3.227.99.991.650262.0 Self [id number] [facility] Workers Compensation [id number] 2.16.840.1.958266.3.227.99.991.576475.0 Self [id number] [facility] Workers Compensation [id number] 2.16.840.1.393998.3.227.99.991.534212.0 Self [id number] [facility] Workers Compensation [id number] 2.16.840.1.884012.3.227.99.991.303126.0 Self [id number] [facility]) Workers Compensation [id number] 2.16.840.1.832860.3.227.99.991.432776.0 Self [id number] [facility]) Workers Compensation [id number] 2.16.840.1.690209.3.227.99.991.502488.0 Self [id number] [facility]) Workers Compensation [id number] Self [id number] A MEDICARE [id number] Carmella [id number] A Medicare (Part B) Medicare Primary [id number] Self Medicare (Part B) Medicare Primary [id number] MRN.[id number] Self [id number] Medicare Medicare Primary [id number] Self Medicare (Part B) Medicare Primary [id number] [id number] Self [id number] Medicare (Part B) Medicare Primary [id number] 2.16.840.1.585049.3.227.99.572.73531.0 Self [id number] Medicare (Part B) Medicare Primary [id number] 2.16.840.1.462814.3.227.99.572.82887.0 Self [id number] Medicare (Part B) Medicare Primary [id number] 2.16.840.1.034006.3.227.99.572.86112.0 Self [id number] EMPIR PLAN [id number] Patient is Insured [id number] [place] [id number] 2.16.840.1.697117.3.227.99.991.244146.0 Self [id number] [facility] Part B [id number] Self [id number] [place] Medicare Primary [id number] Self [id number] [facility] [id number] Self [id number] [place] Medicare Primary [id number] MRN.[id number] Self [id number] [facility] Part B [id number] Self [id number] [place] Medicare Primary [id number] MRN.[id number] Self [id number] [facility] Part B [id number] 20.1.583237.3.227.99.991.940657.0 Self [id number] [place] Medicare Primary [id number] 2.0.1.834629.3.227.99.991.328757.0 Self [id number] [facility] Part B [id number] 2.0.1.674982.3.227.99.991.062605.0 Self [id number] [place] Medicare Primary [id number] .0.1.389400.3.227.99.991.363689.0 Self [id number] [facility] Part B [id number] 2.0.1.010762.3.227.99.991.458831.0 Self [id number] [place] Medicare Primary [id number] 2.0.1.429343.3.227.99.991.438340.0 Self [id number] [facility] Part B [id number] 2.0.1.923797.3.227.99.991.318164.0 Self [id number] [place] Medicare Primary [id number] 2840.1.012158.3.227.99.991.607847.0 Self [id number] [facility] Medigap Part B [id number] 2840.1.255814.3.227.99.991.979396.0 Self [id number] Medicare [place] Medicare Primary [id number] 10.20.830.1.788335.3.227.99.991.970731.0 Self [id number] [facility] Medigap Part B [id number] 10.20.830.1.004564.3.227.99.991.039325.0 Self [id number] [place] Medicare Primary [id number] 10.20.830.1.594504.3.227.99.991.122690.0 Self [id number] [facility] Medigap Part B [id number] .1.211429.3.227.99.991.613203.0 Self [id number] Medicare [place] Medicare Primary [id number] 10.20.830.1.177857.3.227.99.991.610287.0 Self [id number] [facility] Medigap Part B [id number] 10.20.830.1.250592.3.227.99.991.992470.0 Self [id number] Medicare [place] Medicare Primary [id number] 20.1.875149.3.227.99.991.197414.[id number] [facility] Medigap Part B [id number] 10.20.830.1.634024.3.227.99.991.054913.0 Self [id number] Medicare [place] Medicare Primary [id number] 20.1.212152.3.227.99.991.583747.0 Self [id number] [facility] Medigap Part B [id number] 10.20.830.1.148112.3.227.99.991.892699.0 Self [id number] Medicare [place] Medicare Primary [id number] 10.20.830.1.251114.3.227.99.991.694106.0 Self [id number] [facility] [id number] 10.20.830.1.122483.3.227.99.991.677258.0 Self [id number] Medicare [place] Medicare Primary [id number] 10.20.830.1.929286.3.227.99.991.153627.0 Self [id number] [facility] Part [facility] [id number] .1.352284.3.227.99.991.139328.0 Self [id number] Medicare [place] Medicare Primary [id number] .1.223425.3.227.99.991.486180.0 Self [id number] [facility] Part B [id number] .1.756247.3.227.99.991.134219.0 Self [id number] Medicare [place] Medicare Primary [id number] .1.616381.3.227.99.991.146411.0 Self [id number] [facility] Medigap Part B [id number] .1.513438.3.227.99.991.332630.0 Self [id number] [facility] Medigap Part B [id number] .1.388003.3.227.99.991.272043.0 Self [id number] Medicare [place] Medicare Primary [id number] .1.254203.3.227.99.991.740121.0 Self [id number] [facility] Medigap Part B [id number] 2.16.840.1.949797.3.227.99.991.080297.0 Self [id number] Medicare [place] Medigap Part B [id number] 20.1.576846.3.227.99.991.145458.0 Self [id number] [facility] Part B [id number] 20.1.187953.3.227.99.991.149459.0 Self [id number] Medicare [place] Medigap Part B [id number] 10.20.830.1.246178.3.227.99.991.542512.0 Self [id number] [facility] Part B [id number] .1.402483.3.227.99.991.817267.0 Self [id number] Medicare [place] Medigap Part B [id number] .1.787165.3.227.99.991.028816.0 Self [id number] [facility] Part [facility] [id number] .1.834436.3.227.99.991.483998.0 Self [id number] Medicare [place] Medigap Part B [id number] .1.108105.3.227.99.991.186752.0 Self [id number] [facility] Part B [id number] .1.608803.3.227.99.991.149380.0 Self [id number] Medicare [place] Medigap Part B [id number] 10.20.830.1.629834.3.227.99.991.515094.0 Self [id number] [facility] Part B [id number] .1.629507.3.227.99.991.228523.0 Self [id number] Medicare [place] Medigap Part B [id number] 10.20.830.1.894222.3.227.99.991.156547.0 Self [id number] [facility] Part B [id number] 2.0.1.299570.3.227.99.991.852099.0 Self [id number] Medicare [place] Medigap Part B [id number] 2.840.1.722699.3.227.99.991.061862.0 Self [id number] [facility] Part B [id number] 2.0.1.207855.3.227.99.991.493678.0 Self [id number] Medicare [place] Medigap Part B [id number] 10.20.830.1.292843.3.227.99.991.932249.0 Self [id number] [facility] Part B [id number] 20.1.045386.3.227.99.991.196596.0 Self [id number] Medicare [place] Medigap Part B [id number] 10.20.830.1.887337.3.227.99.991.449371.0 Self [id number] [facility] Part B [id number] 20.1.301878.3.227.99.991.539700.0 Self [id number] Medicare [place] Medigap Part B [id number] 10.20.830.1.572773.3.227.99.991.616507.0 Self [id number] [facility] Part B [id number] 20.1.575303.3.227.99.991.218245.0 Self [id number] Medicare [place] Medicare Primary [id number] 20.1.866478.3.227.99.991.744082.0 Self [id number] [facility] Part B [id number] Self Medicare [place] Medicare Primary [id number] Self [employer] BCBS [id number] Carmella YLS [id number] Medicare Dme Supplies Medigap Part B [id number] 2.0.1.860132.3.227.99.991.389278.0 Self [id number] MEDICARE [id number] SP [id number] Medicare Dme Supplies Medigap Part B [id number].[id number] Self [id number] [facility]IRE ([facility]) S [id number] S [id number] [facility] DIV UNAVAILABLE UNAVAILABLE MEDICARE P [id number] S [id number] A Medicare Dme Supplies Medigap Part B [id number].[id number] Self [id number] Medicare Dme Supplies Medigap Part B [id number] .1.184802.3.227.99.991.476268.0 Self [id number] [employer] Medigap Part B [id number] .0.1.075131.3.227.99 .177.04566.0 Self [id number] Medicare - [place] Medicare Primary [id number] .0.1.044355.3.227.99.177.37937.0 Self [id number] [facility] B [id number] 10.20.830.1.472654.3.227.99.572.47947.0 Self [id number] Medicare Dme Supplies Medigap Part B [id number] 10.20.830.1.068363.3.227.99.991.976457.0 Self [id number] [facility] P [id number] S [id number] MEDICARE - [place] MCR [id number] S [id number] Medicare Dme Supplies Medigap Part B [id number] .1.458582.3.227.99.991.229616.0 Self [id number] ANSI-Medicare Part B [id number] ANSI-Commercial [id number] ANSI-Commercial [id number] MEDICARE [id number] SP [id number] A Medicare Dme Supplies [facility] [id number] .1.605554.3.227.99.991.375999.0 Self [id number] Medicare Dme Supplies Medigap Part B [id number].[id number] Self [id number] Medicare Dme Supplies [facility] [id number] ..800374.3.227.99.991.702055.0 Self [id number] [facility] [id number] Self Medicare - [place] Medicare Primary [id number] ..339830.3.227.99.177.60753.0 Self [id number] [facility] [id number] Self [id number] Medicare Dme Supplies [facility] [id number] ..167949.3.227.99.991.546541.0 Self [id number] [facility] [id number] .1.034409.3.227.99.802.061585.0 Self [id number] Ball Plan [facility] [id number] 2.0.1.604243.3.227.99 .177.32624.0 Self [id number] Medicare Medicare Primary [id number] 2.840.1.756793.3.227. 99.802.950271.0 Self [id number] Medicare Dme Supplies Medigap Part B [id number] 2.0.1.920842.3.227.99.991.537371.0 Self [id number] Medicare Medicare Primary [id number] Self Medicare Medicare Primary [id number] 2.0.1.442829.3.227. 99.802.665009.0 Self [id number] Medicare Dme Supplies [facility] Part B [id number] 2.0.1.256778.3.227.99.991.903560.0 Self [id number] [facility] Part B [id number] Self [id number] [facility] [id number] [id number]509.0 Self [id number] Medicare Medigap Part B [id number] 56173.0 Self [id number] [facility] [id number]9 .802.005984.0 Self [id number] [employer] MIC[employer] DIV [id number] SP [id number] Medicare Dme Supplies [facility] [id number]27.0 Self [id number] [employer] MIC[employer] DIV [id number] [facility] Part B [id number]055.0 Self [id number] ANSI-Commercial [id number] Medicare Dme Supplies Medigap Part B [id number] ..829296.3.227.99.991.246663.0 Self [id number] [facility] Medigap Part B [id number] Self Medicare Dme Supplies Medigap Part B [id number] ..479267.3.227.99.991.823377.0 Self [id number] [facility] [id number] Medicare Dme Supplies Medigap Part B [id number] ..113308.3.227.99.991.217552.0 Self [id number] ANSI-Medicare Part B [id number] ANSI-Commercial [id number] Medicare Dme Supplies Medigap Part B [id number]74.0 Self [id number] [facility] DIV [id number] SP [id number] ANSI-Medicare Part B [id number] ANSI-Commercial [id number] Medicare Dme Supplies [facility] Part B [id number]06.0 Self [id number] [facility] [id number] SP [id number] [facility] [id number] SP [id number] ANSI-Commercial [id number] Problems, Conditions, and Diagnoses Code Display Name Description Problem Type Effective Dates Data Source(s) 371225591 Screening for malignant neoplasm of colo n Screening for malignant neoplasm of colon Problem 05/27/2021 12:00:00 AM EDT [facility] ([facility]) M10.9 [id number] Acute gout involving toe of left foot, unspecified cause Problem 03/24/2021 12:00:00 AM EDT eCW1 ([facility]) E78.00 Pure hypercholesterolemia Pure hypercholesterolemia, u nspecified Problem 03/24/2021 12:00:00 AM EDT eCW1 ([facility]) Z12.11 [id number] Colon cancer screening Problem 03/24/2021 12 :00:00 AM EDT eCW1 ([facility]) R53.82 [id number] Chronic fatigue Problem 03/24/2021 12:00:00 AM EDT eCW1 ([facility]) I48.11 [id number] Longstanding persistent atrial fibrillati on Problem 06/10/2020 12:00:00 AM EDT eCW1 ([facility]) G56.02 [id number] Left carpal tunnel syndrome Problem 06/10/2020 12:00:00 AM EDT eCW1 ([facility]) Surgeries/Procedures Procedure Description Date Indications Data Source(s) OFFICE OUTPATIENT VISIT 15 MINUTES 06/07/2021 12:00:00 AM EDT MEDENT ([facility], ) OFFICE OUTPATIENT NEW 30 MINUTES 05/27/2021 12:00:00 A M EDT MEDENT ([facility]) OFFICE OUTPATIENT VISIT 25 MINUTES 04/08/2021 12:00:00 AM EDT MEDENT ([facility] ) ECG ROUTINE ECG W/LEAST 12 LDS W/I&R 04/08/2021 12:00: 00 AM EDT MEDENT ([facility]) OFFICE OUTPATIENT VISIT 25 MINUTES 04/08/2021 12:00:00 AM EDT MEDENT ([facility]) OFFICE OUTPATIENT VISIT 25 MINUTES 03/15/2021 12:00:00 AM EDT MEDENT ([facility]) RADIOLOGIC EXAMINATION KNEE 3 VIEWS 02/03/2021 12:00:0 0 AM EDT MEDENT ([facility] ) OFFICE OUTPATIENT VISIT 15 MINUTES 02/03/2021 12:00:00 AM EDT MEDENT ([facility] ) OFFICE OUTPATIENT VISIT 25 MINUTES 01/19/2021 12:00:00 AM EDT MEDENT ([facility]) X-Ray Spine Lumbosacral Complete Inc Bending Views Min Of 6 12/28/2020 12:00:00 AM EDT MEDENT ([facility] ) X-Ray Spine Lumbosacral Complete Inc Bending Views Min Of 6 12/28/2020 12:00:00 AM EDT MEDENT ([facility] ) OFFICE OUTPATIENT VISIT 25 MINUTES 12/28/2020 12:00:00 AM EDT MEDENT ([facility] ) OFFICE OUTPATIENT VISIT 25 MINUTES 12/28/2020 12:00:00 AM EDT MEDENT ([facility] ) OFFICE OUTPATIENT VISIT 25 MINUTES 12/25/2020 12:00:00 AM EDT MEDENT ([facility] ) OFFICE OUTPATIENT VISIT 15 MINUTES 10/12/2020 12:00:00 AM EST MEDENT ([facility]) Neuroplasty/Transposition, Ulnar Nerve AT Elbow 2019 12:00:00 AM EST MEDENT ([facility], ) Neuroplasty/Transposition, Median Nerve AT Carpal Tunnel 08/11/2020 12:00:00 AM EST MEDENT ([facility], ) ECG ROUTINE ECG W/LEAST 12 LDS W/I&R 07/24/2020 12:00: 00 AM EST MEDENT ([facility]) Immunization: Flublok Quadrivalent (18 years & older) 0.5mL IM (Influenza) 06/10/2020 12:00:00 AM EDT eCW1 ([facility]) Results ID Date Data Source [id number] 03/24/2021 01:16:00 PM EDT MEDENT ([facility]) Name Value Range Interpretation Code Description Data Deanne rce(s) Supporting Document(s) Cholesterol 198 MEDENT ([facility]) Triglycerides 53 MEDENT ([facility]) HDL 102 MEDENT ([facility] Cholesterol in LDL [Mass/volume] in Serum or Plasma by calculation 85 MEDENT ([facility]) Chol/HDL Ratio 1.941 MEDENT ([facility]) ID Date Data Source [id number] 03/24/2021 01:16:00 PM EDT MEDENT ([facility]) Name Value Range Interpretation Code Description Data Deanne rce(s) Supporting Document(s) Thyroid Stimulating Hormone 1.210 ME DENT ([facility]) Free T4 1.00 MEDENT ([facility]) ID Date Data Source [id number] 03/24/2021 01:16:00 PM EDT MEDENT ([facility]) Name Value Range Interpretation Code Description Data Deanne rce(s) Supporting Document(s) Albumin [Mass/volume] in Serum or Plasma 4.4 MEDENT ([facility]) Alanine aminotransferase [Enzymatic activity/volume] in Serum or Pl asma 45 MEDENT ([facility]) Calcium [Mass/volume] in Serum or Plasma 9.1 MEDENT ([facility]) Chloride [Moles/volume] in Serum or Plasma 104 MEDENT ([facility]) Carbon dioxide, total [Moles/volume] in Serum or Plasma 28 MEDENT ([facility]) Alkaline phosphatase [Enzymatic activity/volume] in Serum or Plasma 7 9 MEDENT ([facility]) Potassium [Moles/volume] in Serum or Plasma 4.8 MEDENT ([facility]) Protein [Mass/volume] in Serum or Plasma 8.1 MEDENT ([facility]) Aspartate aminotransferase [Enzymatic activity/volume] in Serum or Plasma 34 MEDENT ([facility]) Sodium 138 MEDENT ([facility]) Glucose 89 83-110 MEDENT ([facility]) Urea nitrogen [Mass/volume] in Serum or Plasma 13 MEDENT ([facility]) Creatinine For GFR 0.81 MEDENT ([facility]) ID Date Data Source [id number] 03/24/2021 01:16:00 PM EDT MEDENT ([facility]) Name Value Range Interpretation Code Description Data Deanne rce(s) Supporting Document(s) White Blood Count 5.9 5.0-10.0 MEDENT ([facility]) Red Blood Count 4.28 4.00-5.40 MEDENT ([facility]) Hemoglobin 13.8 MEDENT ([facility]) Platelets 275 172-450 MEDENT ([facility]) Hematocrit 41.9 MEDENT ([facility]) ID Date Data Source CBC with Auto Differential 03/24/2021 12:00:00 AM EDT eCW1 ( [facility]) Name Value Range Interpretation Code Description Data Deanne rce(s) Supporting Document(s) 5.9 4.0-10.0 WHITE BLOOD COUNT eCW1 ([facility]) 13.8 13.5-17.5 HEMOGLOBIN eCW1 ([facility]) 4.28 4.30-6.10 RED BLOOD COUNT eCW1 ([facility]) 97.9 80.0-96.0 MEAN CORPUSCULAR VOLUME e CW1 ([facility]) 41.9 42.0-52.0 HEMATOCRIT eCW1 ([facility]) 32.9 32.0-36.5 MEAN CORPUSCULAR HGB CONC eCW1 ([facility]) 32.2 27.0-33.0 MEAN CORPUSCULAR HEMOGLOB IN eCW1 ([facility]) 13.7 11.5-14.5 RED CELL DISTRIBUTION WID TH eCW1 ([facility]) 275 150-450 PLATELET COUNT, AUTOMATED eCW1 ([facility]) 55.3 36.0-66.0 NEUTROPHILS % eCW1 ([facility]) 25.3 24.0-44.0 LYMPH % eCW1 ([facility]) 12.4 2.0-8.0 MONO % eCW1 ([facility]) 6.3 0.0-3.0 EOS % eCW1 ([facility]) 0.2 0-3.0 IMMATURE GRANULOCYTE % eCW1 ([facility]) 0.5 0.0-1.0 BASO % eCW1 ([facility]) 3.3 1.5-8.5 NEUTROPHILS # eCW1 ([facility]) 0.0 0-0 NUCLEATED RED BLOOD CELL % eCW 1 ([facility]) 1.5 1.5-5.0 LYMPH # eCW1 ([facility]) 0.7 0.0-0.8 MONO # eCW1 ([facility]) 0.4 0.0-0.5 EOS # eCW1 ([facility]) 0.0 0.0-0.2 BASO # eCW1 ([facility]) ID Date Data Source URIC ACID 03/24/2021 12:00:00 AM EDT eCW1 ([facility]) Name Value Range Interpretation Code Description Data Deanne rce(s) Supporting Document(s) 6.5 3.5-7.2 URIC ACID W1 ([facility]) ID Date Data Source LIPID PANEL (CARDIAC RISK) 03/24/2021 12:00:00 AM EDT eCW1 ( [facility]) Name Value Range Interpretation Code Description Data Deanne rce(s) Supporting Document(s) Triglyceride [Mass/volume] in Serum or Plasma by calculation 53 <150 TRIGLYCERIDES LEVEL eCW1 ([facility]) Cholesterol in HDL [Moles/volume] in Serum or Plasma 102 >40 HDL CHOLESTEROL eCW1 ([facility]) Cholesterol [Moles/volume] in Serum or Plasma 198 <200 CHOLESTEROL LEVEL eCW1 ([facility]) 96 NON-HDL-C eCW1 ([facility]) Cholesterol in LDL [Mass/volume] in Serum or Plasma by calculation 85 <100 LDL CHOLESTEROL eCW1 ([facility]) 1.941 <5 CHOLESTEROL RISK RATIO eCW1 ([facility]) ID Date Data Source FREE T4 & TSH PANEL 03/24/2021 12:00:00 AM EDT eCW1 ([facility]) Name Value Range Interpretation Code Description Data Deanne rce(s) Supporting Document(s) 1.00 0.76-1.46 FREE T4 eCW1 ([facility]) 1.210 0.358-3.740 THYROID STIMULATING HORM ONE eCW1 ([facility]) ID Date Data Source Comprehensive Metabolic Profile (CMP) 03/24/2021 12:00:00 AM EDT eCW1 ([facility]) Name Value Range Interpretation Code Description Data Deanne rce(s) Supporting Document(s) 89 70-100 GLUCOSE, FASTING eCW1 ([facility]) 13 7-18 BLOOD UREA NITROGEN eCW1 ([facility]) > 60.0 >49 GLOMERULAR FILTRATION RATE eCW 1 ([facility]) 0.81 0.70-1.30 CREATININE FOR GFR eCW1 ([facility]) 4.8 3.5-5.1 POTASSIUM SERUM eCW1 ([facility]) 138 136-145 SODIUM LEVEL eCW1 ([facility]) 104 98-107 CHLORIDE LEVEL eCW1 ([facility]) 28 21-32 CARBON DIOXIDE LEVEL eCW1 ([facility]) 9.1 8.8-10.2 CALCIUM LEVEL eCW1 ([facility]) 45 12-78 ALT/SGPT eCW1 ([facility]) 34 7-37 AST/SGOT eCW1 ([facility]) 79 45-117 ALKALINE PHOSPHATASE eCW1 ([facility]) 0.9 0.2-1.0 BILIRUBIN,TOTAL eCW1 ([facility]) 8.1 6.4-8.2 TOTAL PROTEIN eCW1 ([facility]) 1.2 ALBUMIN/GLOBULIN RATIO eCW1 ([facility]) 4.4 3.2-5.2 ALBUMIN eCW1 ([facility]) ID Date Data Source [id number] 09/10/2020 11:25:00 AM EST [facility] Name Value Range Interpretation Code Description Data Deanne rce(s) Supporting Document(s) Prostate specific Ag [Mass/volume] in Serum or Plasma 1.81 ng/mL [facility] ([facility]) The PSA assay is performed on the [employer] analyzer by [employer] sandwich chemiluminescent immunoassay and should not be compared interchangeably with other methods. It should not be used alone as a screening test or diagnosis for the presence or absence of malignant disease. Predictions of disease recurrence should not be based solely on values obtained from serial patient serum values. ID Date Data Source [id number] 08/06/2020 12:00:00 PM EST MEDENT ([facility], ) Name Value Range Interpretation Code Description Data [facility] rce(s) Supporting Document(s) Coronavirus 2019 Nasopharygeal Laboratory test result [facility] ([facility], ) This nucleic acid amplification test was developed and its performance characteristics determined by [employer]. Nucleic acid amplification tests include PCR and TMA. This test has not been FDA cleared or approved. This test has been authorized by FDA under an Emergency Use Authorization (EUA). This test is only authorized for the duration of time the declaration that circumstances exist justifying the authorization of the emergency use of in vitro diagnostic tests for detection of SARS-CoV-2 virus and/or diagnosis of COVID-19 infection under section 564(b)(1) of the Act, 21 U.S.C. 360bbb-3 (b) (1), unless the authorization is terminated or revoked sooner. When diagnostic testing is negative, the possibility of a false negative result should be considered in the context of a patient's recent exposures and the presence of clinical signs and symptoms consistent with COVID-19. An individual without symptoms of COVID-19 and who is not shedding SARS-CoV-2 virus would expect to have a negative (not detected) result in this assay. Performed at: [facility] [address] [facility], [place] [id number] [employer]: Eveline Albright PhD, Phone: [phone] Not Detected ID Date Data Source [id number] 08/06/2020 12:00:00 PM EST [facility] Name Value Range Interpretation Code Description Data Deanne rce(s) Supporting Document(s) SARS coronavirus 2 RNA [facility] This lab was ordered by [facility] and reported by [facility]. Procedure Social History Code Duration Value Status Description Data Source(s ) Smoking 06/07/2021 12:00:00 AM EDT Non Smoker completed Non Smoke r MEDENT ([facility], ) Smoking 05/18/2021 12:00:00 AM EDT Never Smoker completed Never S moker eCW1 ([facility]) Smoking 04/08/2021 12:00:00 AM EDT Patient has never smoked co mpleted Patient has never smoked MEDENT ([facility]) Smoking 03/24/2021 12:00:00 AM EDT Never Smoker completed Never S moker eCW1 ([facility]) Smoking 03/24/2021 12:00:00 AM EDT Never Smoker completed Never S moker eCW1 ([facility]) Smoking 09/23/2020 12:00:00 AM EST Never Smoker completed Never S moker eCW1 ([facility]) Smoking 06/10/2020 12:00:00 AM EDT Never Smoker completed Never S moker eCW1 ([facility]) Vital Signs ID Date Data Source UNK Name Value Range Interpretation Code Description Data Source(s) Systolic blood pressure 112 mm[Hg] 112 mm[Hg] M EDENT ([facility], ) Diastolic blood pressure 68 mm[Hg] 68 mm[Hg] MEDENT ([facility], ) Heart rate 66 /min 66 /min [facility] ([facility], ) Oxygen saturation in Arterial blood by Pulse oximetry 96 % 96 % [facility] ([facility], ) Body height 72.5 [in_i] 72.5 [in_i] MEDENT ([facility], ) 6'0.50" Body weight 206.00 [lb_av] 206.00 [lb_av] MEDEN T ([facility]) Body mass index (BMI) [Ratio] 27.6 kg/m2 27.6 k g/m2 MEDENT ([facility]) [place] body weight 178 [lb_av] 178 [lb_av] MEDEN T ([facility]) Body weight 93.442 kg 93.442 kg MEDENT ([facility]) Body surface area Derived from formula 2.17 m2 2.17 m2 [facility] Body height 74 [in_i] 74 [in_i] MEDENT ([facility] 6'2" Body weight 197.44 [lb_av] 197.44 [lb_av] MEDEN T ([facility]) Systolic blood pressure 111 mm[Hg] 111 mm[Hg] M EDENT ([facility]) Diastolic blood pressure 74 mm[Hg] 74 mm[Hg] MEDENT ([facility]) Heart rate 51 /min 51 /min [facility] ([facility]) Body mass index (BMI) [Ratio] 25.3 kg/m2 25.3 k g/m2 MEDENT ([facility]) Body weight 89.558 kg 89.558 kg [facility]) Body temperature 96.6 [degF] 96.6 [degF] MEDENT ([facility]) Body weight 201.8 [lb_av] 201.8 [lb_av] eCW1 ([facility]) Body height [in_i] eCW1 ([facility]) Body mass index (BMI) [Ratio] 26.62 kg/m2 26.62 kg/m2 eCW1 ([facility]) Heart rate 78 /min 78 /min eCW1 ([facility]) Respiratory rate 19 /min 19 /min eCW1 ([facility]) Body temperature 97.8 [degF] 97.8 [degF] eCW1 ( [facility]) Systolic blood pressure 130 mm[Hg] 130 mm[Hg] e CW1 ([facility]) Diastolic blood pressure 74 mm[Hg] 74 mm[Hg] eCW1 ([facility]) Body weight 198.00 [lb_av] 198.00 [lb_av] MEDEN T ([facility]) Body height 74 [in_i] 74 [in_i] MEDENT ([facility]) 6'2" Body mass index (BMI) [Ratio] 25.4 kg/m2 25.4 k g/m2 MEDENT ([facility]) Heart rate 72 /min 72 /min MED[facility] ([facility]) Irregular Respiratory rate 16 /min 16 /min MEDENT ( [facility]) Systolic blood pressure 126 mm[Hg] 126 mm[Hg] M EDENT ([facility]) sitting, regular cuff Diastolic blood pressure 68 mm[Hg] 68 mm[Hg] MEDENT ([facility]) sitting, regular cuff Systolic blood pressure 124 mm[Hg] 124 mm[Hg] M EDENT ([facility]) sitting Diastolic blood pressure 68 mm[Hg] 68 mm[Hg] MEDENT ([facility]) sitting Body weight 201 [lb_av] 201 [lb_av] eCW1 ([facility]) Body height [in_i] eCW1 ([facility]) Body mass index (BMI) [Ratio] 26.52 kg/m2 26.52 kg/m2 eCW1 ([facility]) Heart rate 69 /min 69 /min eCW1 ([facility]) Respiratory rate 16 /min 16 /min eCW1 ([facility]) Body temperature 98.5 [degF] 98.5 [degF] eCW1 ( [facility]) Systolic blood pressure 115 mm[Hg] 115 mm[Hg] e CW1 ([facility]) Diastolic blood pressure 69 mm[Hg] 69 mm[Hg] eCW1 ([facility]) Systolic blood pressure 120 mm[Hg] 120 mm[Hg] M EDENT ([facility]) Diastolic blood pressure 76 mm[Hg] 76 mm[Hg] MEDENT ([facility]) Body weight 198.00 [lb_av] 198.00 [lb_av] MEDEN T ([facility]) Respiratory rate 18 /min 18 /min MEDENT ( [facility]) Systolic blood pressure 118 mm[Hg] 118 mm[Hg] M EDENT ([facility]) Diastolic blood pressure 82 mm[Hg] 82 mm[Hg] MEDENT ([facility]) Body weight 192.00 [lb_av] 192.00 [lb_av] MEDEN T ([facility]) Body temperature 97.8 [degF] 97.8 [degF] MEDENT ([facility]) Body temperature 97.8 [degF] 97.8 [degF] MEDENT ([facility] ) Body height 74 [in_i] 74 [in_i] MEDENT ([facility] ) 6'2" Body weight 194.00 [lb_av] 194.00 [lb_av] MEDEN T ([facility] ) Body mass index (BMI) [Ratio] 24.9 kg/m2 24.9 k g/m2 MEDENT ([facility]) Systolic blood pressure 131 mm[Hg] 131 mm[Hg] M EDENT ([facility], ) Diastolic blood pressure 68 mm[Hg] 68 mm[Hg] [facility] ([facility], ) Heart rate 58 /min 58 /min [facility] ([facility], ) Oxygen saturation in Arterial blood by Pulse oximetry 98 % 98 % [facility] ([facility], ) Respiratory rate 16 /min 16 /min [facility] ( [facility], ) Oxygen saturation in Arterial blood by Pulse oximetry 98 % 98 % [facility] ([facility], ) Respiratory rate 16 /min 16 /min [facility] ( [facility], ) Body temperature 97.6 [degF] 97.6 [degF] [facility] ([facility], ) Body height 72.5 [in_i] 72.5 [in_i] [facility] ([facility], ) 6'0.50" Body weight 212.00 [lb_av] 212.00 [lb_av] MEDEN T ([facility], ) Body mass index (BMI) [Ratio] 28.4 kg/m2 28.4 k g/m2 [facility] [place] body weight 178 [lb_av] 178 [lb_av] MEDEN T ([facility]) Body weight 96.163 kg 96.163 kg MEDENT ([facility]) Body surface area Derived from formula 2.20 m2 2.20 m2 [facility]) Body temperature 97.6 [degF] 97.6 [degF] MEDENT ([facility]) Body height 72.5 [in_i] 72.5 [in_i] MEDENT ([facility]) 6'0.50" Body weight 212.00 [lb_av] 212.00 [lb_av] MEDEN T ([facility]) Body mass index (BMI) [Ratio] 28.4 kg/m2 28.4 k g/m2 [facility]) [place] body weight 178 [lb_av] 178 [lb_av] MEDEN T ([facility]) Body weight 96.163 kg 96.163 kg MEDENT ([facility]) Body surface area Derived from formula 2.20 m2 2.20 m2 [facility] ([facility]) Body temperature 97.2 [degF] 97.2 [degF] MEDENT ([facility]) Body height 72.5 [in_i] 72.5 [in_i] MEDENT ([facility]) 6'0.50" [place] body weight 178 [lb_av] 178 [lb_av] MEDEN T ([facility]) Body weight 182.3 [lb_av] 182.3 [lb_av] eCW1 ([facility]) Body height [in_i] eCW1 ([facility]) Body mass index (BMI) [Ratio] 24.05 kg/m2 24.05 kg/m2 eCW1 ([facility]) Heart rate 62 /min 62 /min eCW1 ([facility]) Respiratory rate 19 /min 19 /min eCW1 ([facility]) Body temperature 97.8 [degF] 97.8 [degF] eCW1 ( [facility]) Systolic blood pressure 118 mm[Hg] 118 mm[Hg] e CW1 ([facility]) Diastolic blood pressure 72 mm[Hg] 72 mm[Hg] eCW1 ([facility]) Body temperature 97.8 [degF] 97.8 [degF] [facility] ([facility]) Body height 72.5 [in_i] 72.5 [in_i] MEDENT ([facility]) 6'0.50" Body weight 212.00 [lb_av] 212.00 [lb_av] MEDEN T ([facility]) Body mass index (BMI) [Ratio] 28.4 kg/m2 28.4 k g/m2 [facility] ([facility]) [place] body weight 178 [lb_av] 178 [lb_av] MEDEN T ([facility]) Body weight 96.163 kg 96.163 kg [facility] ([facility]) Body surface area Derived from formula 2.20 m2 2.20 m2 [facility] ([facility]) Body temperature 97.2 [degF] 97.2 [degF] MEDENT ([facility]) Body mass index (BMI) [Ratio] 25.7 kg/m2 25.7 k g/m2 MEDENT ([facility]) Heart rate 60 /min 60 /min MED[facility] ([facility]) Irregular Respiratory rate 16 /min 16 /min MEDENT ( [facility]) Systolic blood pressure 122 mm[Hg] 122 mm[Hg] M EDENT ([facility]) sitting Diastolic blood pressure 68 mm[Hg] 68 mm[Hg] MEDENT ([facility]) sitting Body height 74 [in_i] 74 [in_i] MEDENT ([facility]) 6'2" Systolic blood pressure 126 mm[Hg] 126 mm[Hg] M EDENT ([facility]) sitting, regular cuff Diastolic blood pressure 68 mm[Hg] 68 mm[Hg] MEDENT ([facility]) sitting, regular cuff Body weight 200.00 [lb_av] 200.00 [lb_av] MEDEN T ([facility]) Body weight 185 [lb_av] 185 [lb_av] eCW1 ([facility]) Body height [in_i] eCW1 ([facility]) Body mass index (BMI) [Ratio] 24.41 kg/m2 24.41 kg/m2 eCW1 ([facility]) Heart rate 60 /min 60 /min eCW1 ([facility]) Respiratory rate 18 /min 18 /min eCW1 ([facility]) Body temperature 98 [degF] 98 [degF] eCW1 ([facility]) Systolic blood pressure 105 mm[Hg] 105 mm[Hg] e CW1 ([facility]) Diastolic blood pressure 69 mm[Hg] 69 mm[Hg] eCW1 ([facility]) Body temperature 98.2 [degF] 98.2 [degF] MEDENT ([facility], ) Body height 73.5 [in_i] 73.5 [in_i] MEDENT ([facility], ) 6'1.50" Body weight 201.00 [lb_av] 201.00 [lb_av] MEDEN T ([facility], ) Body mass index (BMI) [Ratio] 26.2 kg/m2 26.2 k g/m2 [facility], ) [place] body weight 184 [lb_av] 184 [lb_av] MEDEN T ([facility], ) Systolic blood pressure 116 mm[Hg] 116 mm[Hg] M EDENT ([facility], ) Diastolic blood pressure 70 mm[Hg] 70 mm[Hg] [facility]) Heart rate 82 /min 82 /min [facility] ([facility]) Oxygen saturation in Arterial blood by Pulse oximetry 96 % 96 % [facility] ([facility]) Body weight 91.174 kg 91.174 kg [facility] ([facility]) Body surface area Derived from formula 2.17 m2 2.17 m2 [facility] ([facility]) Patient Treatment Plan of Care Planned Activity Planned Date Details Description Data Source (s) Cephalexin 500 MG Oral Capsule 05/18/2021 12:00:00 AM EDT eCW1 ([facility]) Amoxicillin 875 MG / Clavulanate 125 MG Oral Tablet 09/23/19 12:00:00 AM EST eCW1 ([facility])
[2021-07-21] MEDS ORDERED: propofoL 500 MG/50 ML VIAL As Ordered ONE (11:30)
[2021-07-21] MEDS ORDERED: LIDOCAINE 2% 100MG/5ML SDV (FOR ANES.) As Ordered ONE (11:30)
--- NOTE | 2021-07-21 11:34 | ROOR ---
Patient Name: Sagar Stage Procedure Date: 07/21/2021 11:07 AM Date of : 1950 Age: 71 Room: [facility] Gender: Male Note Status: Finalized Procedure: Total Colonoscopy to Cecum Indications: Screening for colorectal malignant neoplasm Providers: Gerry Aguilera MD Referring MD: Dann Encarnacion MD Requesting Provider: Medicines: Monitored Anesthesia Care Complications: No immediate complications. Procedure: Pre-Anesthesia Assessment: - The heart rate, respiratory rate, oxygen saturations, blood pressure, adequacy of pulmonary ventilation, and response to care were monitored throughout the procedure. The Colonoscope was introduced through the anus and advanced to the cecum, identified by appendiceal orifice and ileocecal valve. The colonoscopy was performed without difficulty. The patient tolerated the procedure well. The quality of the bowel preparation was poor. Findings: The perianal and digital rectal examinations were normal. Non-bleeding internal hemorrhoids were found during retroflexion. The hemorrhoids were small and Grade I (internal hemorrhoids that do not prolapse). Multiple small and large-mouthed diverticula were found in the recto-sigmoid colon, sigmoid colon and descending colon. The exam was otherwise without abnormality on direct and retroflexion views. Impression: - Preparation of the colon was poor. - Non-bleeding internal hemorrhoids. - Diverticulosis in the recto-sigmoid colon, in the sigmoid colon and in the descending colon. - The examination was otherwise normal on direct and retroflexion views. - No specimens collected. - The exam was otherwise normal to the cecum. Recommendation: - Patient has a contact number available for emergencies. The signs and symptoms of potential delayed complications were discussed with the patient. Return to normal activities tomorrow. Written discharge instructions were provided to the patient. - High fiber diet. - Discharge patient to home. - Continue present medications. - Repeat colonoscopy in 2 years for screening purposes. - Return to referring physician. - The findings and recommendations were discussed with the patient. Procedure Code(s): --- Professional --- 99973, Colonoscopy, flexible; diagnostic, including collection of specimen(s) by brushing or washing, when performed (separate procedure) Diagnosis Code(s): --- Professional --- Z12.11, Encounter for screening for malignant neoplasm of colon K64.0, First degree hemorrhoids K57.30, Diverticulosis of large intestine without perforation or abscess without bleeding CPT copyright 2019 [employer]. All rights reserved. The codes documented in this report are preliminary and upon hunting sales associate review may be revised to meet current compliance requirements. Gerry Aguilera MD Gerry Aguilera MD 07/21/2021 11:34:21 AM Electronically signed by Gerry Aguilera MD Number of Addenda: 0 Note Initiated On: 07/21/2021 11:07 AM Estimated Blood Loss: Estimated blood loss: none.
[2021-07-21 11:57] VITALS: BP 125/67
== END 2021-07-21 12:00 | disposition home or self-care (01) ==
LOC: M OPP 09:58
PROVIDERS: ATTEND Internal Medicine Gastroenterology
DX: Z12.11 Encounter for screening for malignant neoplasm of colon (principal); K57.30 Diverticulosis of large intestine without perforation or abscess without bleeding; K64.0 First degree hemorrhoids; I48.91 Unspecified atrial fibrillation; G47.30 Sleep apnea, unspecified; Z79.82 Long term (current) use of aspirin; Z79.899 Other long term (current) drug therapy

== ENCOUNTER → 2021-09-01 | Outpatient (REF) | payer MEDICARE, BC, OTHER ==
[~2021-09-01] MED LIST changes: -NS 1,000 ML IV ONE
== END ==
LOC: M LABDRAWC 11:15
PROVIDERS: ATTEND Nurse Practitioner
DX: N40.3 Nodular prostate with lower urinary tract symptoms (principal)

== ENCOUNTER → 2022-10-07 | Outpatient (REF) | payer MEDICARE, BC, OTHER ==
[~2022-10-07] MED LIST changes: -LISI-898 PO; +LISI5TAB11 PO
[2022-10-07 11:32] LABS: BASO # 0.1 10^3/uL (0.0-0.2); BASO % 1.1 % (0.0-1.0); EOS # 0.3 10^3/uL (0.0-0.5); EOS % 6.9 % (0.0-3.0); HEMATOCRIT 41.7 % (42.0-52.0); HEMOGLOBIN 13.6 g/dl (13.5-17.5); LYMPH # 1.9 10^3/uL (1.5-5.0); LYMPH % 40.2 % (24.0-44.0); MEAN CORPUSCULAR HGB CONC 32.6 g/dl (32.0-36.5); MEAN CORPUSCULAR VOLUME 98.1 fl (80.0-96.0); MONO # 0.7 10^3/uL (0.0-0.8); MONO % 14.1 % (2.0-8.0); NEUTROPHILS # 1.8 10^3/uL (1.5-8.5); NEUTROPHILS % 37.7 % (36.0-66.0); PLATELET COUNT, AUTOMATED 258 10^3/uL (150-450); RED BLOOD COUNT 4.25 10^6/uL (4.30-6.10); WHITE BLOOD COUNT 4.8 10^3/uL (4.0-10.0)
[2022-10-07 11:36] LABS: PROSTATIC SPECIFIC AG MONITOR 1.66 NG/ML (< 4.00)
[2022-10-07 11:38] LABS: ALBUMIN 4.2 G/DL (3.2-5.2); ALKALINE PHOSPHATASE 55 U/L (46-116); ALT/SGPT 26 U/L (7.0-40); AST/SGOT 29 U/L (<34); BILIRUBIN,TOTAL 0.9 MG/DL (0.3-1.2); BLOOD UREA NITROGEN 20 MG/DL (9-23); CALCIUM LEVEL 9.8 MG/DL (8.3-10.6); CARBON DIOXIDE LEVEL 29 MMOL/L (20-31); CHLORIDE LEVEL 103 MMOL/L (98-107); CHOLESTEROL LEVEL 169 MG/DL (<200); CREATININE FOR GFR 1.01 MG/DL (0.70-1.30); GLOMERULAR FILTRATION RATE > 60.0 (>42); GLUCOSE, FASTING 95 MG/DL (74-106); HDL CHOLESTEROL 88.7 MG/DL (>40); LDL CHOLESTEROL 69.7 MG/DL (<100); NON-HDL-C 80 MG/DL; POTASSIUM SERUM 4.6 MMOL/L (3.5-5.1); SODIUM LEVEL 140 MMOL/L (136-145); TOTAL PROTEIN 7.3 G/DL (5.7-8.2); TRIGLYCERIDES LEVEL 53 MG/DL (<150)
[2022-10-07 11:55] LABS: ERYTHROCYTE SEDIMENTATION RATE 22 mm/hr (0-20)
== END ==
LOC: M SFHCCLAY 07:37
PROVIDERS: ATTEND Family Medicine
DX: I10 Essential (primary) hypertension (principal); G47.33 Obstructive sleep apnea (adult) (pediatric); M10.9 Gout, unspecified; E78.00 Pure hypercholesterolemia, unspecified; Z85.46 Personal history of malignant neoplasm of prostate

== ENCOUNTER → 2023-09-14 | Outpatient (REF) | payer MEDICARE, OTHER | LOC: M SFHCCLAY 14:11 | PROVIDERS: ATTEND Family Medicine | DX: I48.11 Longstanding persistent atrial fibrillation (principal); M10.9 Gout, unspecified; I10 Essential (primary) hypertension; R53.83 Other fatigue ==

== ENCOUNTER → 2023-09-15 | Outpatient (REF) | payer MEDICARE, OTHER ==
[2023-09-15 11:54] LABS: BASO # 0.1 10^3/uL (0.0-0.2); BASO % 1.3 % (0.0-1.0); EOS # 0.2 10^3/uL (0.0-0.5); EOS % 4.8 % (0.0-3.0); LYMPH # 1.5 10^3/uL (1.5-5.0); LYMPH % 38.3 % (24.0-44.0); MEAN CORPUSCULAR HEMOGLOBIN 31.4 pg (27.0-33.0); MEAN CORPUSCULAR HGB CONC 32.5 g/dl (32.0-36.5); MEAN CORPUSCULAR VOLUME 96.6 fl (80.0-96.0); MONO # 0.5 10^3/uL (0.0-0.8); MONO % 11.3 % (2.0-8.0); NEUTROPHILS # 1.8 10^3/uL (1.5-8.5); PLATELET COUNT, AUTOMATED 295 10^3/uL (150-450); RED BLOOD COUNT 4.14 10^6/uL (4.30-6.10)
[2023-09-15 11:55] LABS: ALBUMIN 3.8 G/DL (3.2-5.2); ALKALINE PHOSPHATASE 74 U/L (46-116); ALT/SGPT 39 U/L (7.0-40); AST/SGOT 24 U/L (<34); BILIRUBIN,TOTAL 0.6 MG/DL (0.3-1.2); BLOOD UREA NITROGEN 17 MG/DL (9-23); CALCIUM LEVEL 9.5 MG/DL (8.3-10.6); CARBON DIOXIDE LEVEL 30 MMOL/L (20-31); CHLORIDE LEVEL 105 MMOL/L (98-107); CHOLESTEROL LEVEL 158 MG/DL (<200); CHOLESTEROL RISK RATIO 2.13 (<5); GLOMERULAR FILTRATION RATE > 60.0 (>42); GLUCOSE, FASTING 96 MG/DL (74-106); HDL CHOLESTEROL 73.9 MG/DL (>40); LDL CHOLESTEROL 73.3 MG/DL (<100); MAGNESIUM LEVEL 2.3 MG/DL (1.8-2.4); NON-HDL-C 84.1 MG/DL; POTASSIUM SERUM 4.2 MMOL/L (3.5-5.1); SODIUM LEVEL 138 MMOL/L (136-145); TOTAL PROTEIN 6.9 G/DL (5.7-8.2); TRIGLYCERIDES LEVEL 54 MG/DL (<150)
[2023-09-15 11:59] LABS: THYROID STIMULATING HORMONE 1.773 uIU/ML (0.55-4.78)
== END ==
LOC: M SFHCCLAY 07:19
PROVIDERS: ATTEND Family Medicine
DX: M10.9 Gout, unspecified (principal); I48.11 Longstanding persistent atrial fibrillation; I10 Essential (primary) hypertension; R53.83 Other fatigue

== ENCOUNTER → 2023-09-21 | Outpatient (CLI) | payer MEDICARE, BC, OTHER | LOC: M RAD 11:20 | PROVIDERS: ATTEND Family Medicine | DX: R10.31 Right lower quadrant pain (principal) ==

== ENCOUNTER → 2023-11-06 | Outpatient (REF) | payer MEDICARE, BC, OTHER ==
[~2023-11-06] MED LIST changes: +FERR325T14 PO; -IRON325T9 PO
[2023-11-06 19:20] LABS: ALBUMIN 4.1 G/DL (3.2-5.2); BILIRUBIN,DIRECT 0.2 MG/DL (<0.4); BILIRUBIN,TOTAL 0.7 MG/DL (0.3-1.2); CHOLESTEROL RISK RATIO 2.29 (<5); HDL CHOLESTEROL 66.6 MG/DL (>40); LDL CHOLESTEROL 72.6 MG/DL (<100); NON-HDL-C 86.4 MG/DL; TOTAL PROTEIN 7.4 G/DL (5.7-8.2)
== END ==
LOC: M LABDRAWC 17:45
PROVIDERS: ATTEND Physician Assistant
DX: E78.00 Pure hypercholesterolemia, unspecified (principal)

== ENCOUNTER → 2024-09-17 | Outpatient (REF) | payer MEDICARE, BC, OTHER ==
[~2024-09-17] MED LIST changes: +GABA-1172 PO; -GABA-282 PO; -GARL500C2 PO; +GARL500C6 PO
[2024-09-17 11:38] LABS: PLATELET COUNT, AUTOMATED 227 10^3/uL (150-450)
[2024-09-17 12:09] LABS: INR 0.92; PARTIAL THROMBOPLASTIN TIME 27.3 SECONDS (24.8-34.2); PROTHROMBIN TIME 12.6 SECONDS (12.5-14.5)
== END ==
LOC: M LABDRAWC 11:20
PROVIDERS: ATTEND Physician Assistant
DX: Z01.818 Encounter for other preprocedural examination (principal)

== ENCOUNTER → 2024-09-18 | Outpatient (REF) | payer MEDICARE, OTHER ==
[2024-09-18 11:50] LABS: BLOOD UREA NITROGEN 24 MG/DL (9-23); CALCIUM LEVEL 9.5 MG/DL (8.3-10.6); CARBON DIOXIDE LEVEL 28 MMOL/L (20-31); CHLORIDE LEVEL 108 MMOL/L (98-107); CREATININE FOR GFR 0.77 MG/DL (0.70-1.30); GLOMERULAR FILTRATION RATE > 60.0 (>42); GLUCOSE, FASTING 100 MG/DL (74-106); HEMATOCRIT 41.6 % (42.0-52.0); HEMOGLOBIN 13.7 g/dl (13.5-17.5); MAGNESIUM LEVEL 2.3 MG/DL (1.8-2.4); MEAN CORPUSCULAR HEMOGLOBIN 31.9 pg (27.0-33.0); MEAN CORPUSCULAR HGB CONC 32.9 g/dl (32.0-36.5); MEAN CORPUSCULAR VOLUME 96.7 fl (80.0-96.0); PLATELET COUNT, AUTOMATED 215 10^3/uL (150-450); POTASSIUM SERUM 4.5 MMOL/L (3.5-5.1); SODIUM LEVEL 143 MMOL/L (136-145); WHITE BLOOD COUNT 4.1 10^3/uL (4.0-10.0)
== END ==
LOC: M LABDRAWC 11:28
PROVIDERS: ATTEND Physician Assistant
DX: I48.21 Permanent atrial fibrillation (principal)

== ENCOUNTER → 2024-09-18 | Outpatient (REF) | payer MEDICARE, BC ==
[2024-09-18 11:33] LABS: EOS # 0.2 10^3/uL (0.0-0.5); EOS % 5.7 % (0.0-3.0); HEMATOCRIT 41.1 % (42.0-52.0); HEMOGLOBIN 13.6 g/dl (13.5-17.5); LYMPH # 1.6 10^3/uL (1.5-5.0); LYMPH % 37.7 % (24.0-44.0); MEAN CORPUSCULAR HEMOGLOBIN 32.1 pg (27.0-33.0); MEAN CORPUSCULAR HGB CONC 33.1 g/dl (32.0-36.5); MEAN CORPUSCULAR VOLUME 96.9 fl (80.0-96.0); MONO # 0.5 10^3/uL (0.0-0.8); MONO % 12.2 % (2.0-8.0); NEUTROPHILS # 1.8 10^3/uL (1.5-8.5); NEUTROPHILS % 43.2 % (36.0-66.0); PLATELET COUNT, AUTOMATED 221 10^3/uL (150-450); RED BLOOD COUNT 4.24 10^6/uL (4.30-6.10); WHITE BLOOD COUNT 4.2 10^3/uL (4.0-10.0)
[2024-09-18 11:36] LABS: IRON (FE) 71 UG/DL (65-175)
[2024-09-18 11:37] LABS: ALBUMIN 4.1 G/DL (3.2-5.2); ALKALINE PHOSPHATASE 78 U/L (40-129); ALT/SGPT 40 U/L (7.0-40); AST/SGOT 22 U/L (<34); BILIRUBIN,TOTAL 0.5 MG/DL (0.3-1.2); BLOOD UREA NITROGEN 24 MG/DL (9-23); CALCIUM LEVEL 9.8 MG/DL (8.3-10.6); CARBON DIOXIDE LEVEL 27 MMOL/L (20-31); CHLORIDE LEVEL 108 MMOL/L (98-107); CHOLESTEROL LEVEL 184 MG/DL (<200); CHOLESTEROL RISK RATIO 2.16 (<5); CREATININE FOR GFR 0.79 MG/DL (0.70-1.30); GLOMERULAR FILTRATION RATE > 60.0 (>42); GLUCOSE, FASTING 101 MG/DL (74-106); HDL CHOLESTEROL 85.1 MG/DL (>40); LDL CHOLESTEROL 88.3 MG/DL (<100); NON-HDL-C 98.9 MG/DL; POTASSIUM SERUM 4.5 MMOL/L (3.5-5.1); SODIUM LEVEL 143 MMOL/L (136-145); TOTAL IRON BINDING CAPACITY 374 UG/DL (250-425); TOTAL PROTEIN 7.4 G/DL (5.7-8.2); TRIGLYCERIDES LEVEL 53 MG/DL (<150)
[2024-09-18 11:38] LABS: VITAMIN B12 LEVEL 759 PG/ML (211-911)
[2024-09-18 11:39] LABS: FERRITIN 20.9 NG/ML (10.5-307.3)
[2024-09-18 11:41] LABS: FOLATE 17.4 NG/ML (>5.4)
[2024-09-18 12:22] LABS: HEMOGLOBIN A1c 5.6 % (4.0-6.0)
== END ==
LOC: M SFHCCLAY 07:12
PROVIDERS: ATTEND Physician Assistant
DX: I10 Essential (primary) hypertension (principal); E78.2 Mixed hyperlipidemia; I48.11 Longstanding persistent atrial fibrillation; G47.33 Obstructive sleep apnea (adult) (pediatric); I77.810 Thoracic aortic ectasia; Z87.39 Personal history of other diseases of the musculoskeletal system and connective tissue; D64.9 Anemia, unspecified; Z12.11 Encounter for screening for malignant neoplasm of colon; Z79.899 Other long term (current) drug therapy

== ENCOUNTER 2024-10-16 11:39 | Day surgery (SDC) | payer MEDICARE, BC ==
[~2024-10-16] VITALS: Ht 188 cm; Wt 95.0 kg
[~2024-10-16 11:39] MED LIST changes: +ASPI81TA26 PO
[2024-10-16] MEDS ORDERED: propofoL 200 MG/20 ML VIAL As Ordered ONE (14:18)
[2024-10-16 14:20] VITALS: TEMP 97.6
[2024-10-16 14:40] VITALS: BP 131/77; O2SAT 96
== END 2024-10-16 14:42 | disposition home or self-care (01) ==
LOC: M OPP 11:39
PROVIDERS: ATTEND Internal Medicine Gastroenterology
DX: Z12.11 Encounter for screening for malignant neoplasm of colon (principal); K57.30 Diverticulosis of large intestine without perforation or abscess without bleeding; K64.0 First degree hemorrhoids; I48.91 Unspecified atrial fibrillation; G47.30 Sleep apnea, unspecified; Z79.82 Long term (current) use of aspirin; Z79.899 Other long term (current) drug therapy

== ENCOUNTER → 2025-01-23 | Outpatient (CLI) | payer MEDICARE, BC | LOC: M PLAIMG 09:53 | PROVIDERS: ATTEND Physician Assistant | DX: I08.0 Rheumatic disorders of both mitral and aortic valves (principal); I77.810 Thoracic aortic ectasia; I35.8 Other nonrheumatic aortic valve disorders ==

== ENCOUNTER → 2025-04-28 | Outpatient (REF) | payer MEDICARE, OTHER ==
[2025-04-28 13:28] LABS: ALT/SGPT 24 U/L (7.0-40); AST/SGOT 20 U/L (<34); CALCIUM LEVEL 9.5 MG/DL (8.3-10.6); CARBON DIOXIDE LEVEL 31 MMOL/L (20-31); CHLORIDE LEVEL 107 MMOL/L (98-107); CHOLESTEROL LEVEL 176 MG/DL (<200); CHOLESTEROL RISK RATIO 2.46 (<5); CREATININE FOR GFR 0.82 MG/DL (0.70-1.30); GLOMERULAR FILTRATION RATE > 90.0 (>42); LDL CHOLESTEROL 88.1 MG/DL (<100); MAGNESIUM LEVEL 2.2 MG/DL (1.8-2.4); NON-HDL-C 104.5 MG/DL; POTASSIUM SERUM 4.7 MMOL/L (3.5-5.1); SODIUM LEVEL 143 MMOL/L (136-145); TRIGLYCERIDES LEVEL 82 MG/DL (<150)
[2025-04-28 13:38] LABS: PLATELET COUNT, AUTOMATED 231 10^3/uL (150-450)
== END ==
LOC: M LABDRAWC 11:44
PROVIDERS: ATTEND Physician Assistant
DX: I48.21 Permanent atrial fibrillation (principal); E78.00 Pure hypercholesterolemia, unspecified; I10 Essential (primary) hypertension

== ENCOUNTER → 2025-05-08 | Outpatient (CLI) | payer MEDICARE, OTHER ==
[~2025-05-08] MED LIST changes: -COLC0.6T47 PO; +COLC0.6T53 PO
== END ==
LOC: M EKG 13:05
PROVIDERS: ATTEND Physician Assistant
DX: I48.21 Permanent atrial fibrillation (principal)

== ENCOUNTER → 2025-06-13 | Outpatient (CLI) | payer MEDICARE, OTHER ==
[~2025-06-13] MED LIST changes: +ATOR1TAB19 PO; +LIDO1ADH93 TD
[2025-06-13 16:40] LABS: PLATELET COUNT, AUTOMATED 272 10^3/uL (150-450)
[2025-06-13 17:01] LABS: CALCIUM LEVEL 9.4 MG/DL (8.3-10.6); CARBON DIOXIDE LEVEL 27 MMOL/L (20-31); CHLORIDE LEVEL 104 MMOL/L (98-107); CREATININE FOR GFR 0.72 MG/DL (0.70-1.30); GLOMERULAR FILTRATION RATE > 90.0 (>42); POTASSIUM SERUM 4.3 MMOL/L (3.5-5.1); SODIUM LEVEL 141 MMOL/L (136-145)
== END ==
LOC: M LAB 16:01
PROVIDERS: ATTEND Physician Assistant
DX: I49.5 Sick sinus syndrome (principal)

== ENCOUNTER → 2025-06-13 | Outpatient (REF) | payer MEDICARE, OTHER | LOC: M LAB REF 16:00 | PROVIDERS: ATTEND Physician Assistant | DX: I49.5 Sick sinus syndrome (principal) ==

== ENCOUNTER 2025-06-26 06:31 | Day surgery (SDC) | payer MEDICARE, BC ==
[~2025-06-26] VITALS: Ht 188 cm; Wt 94.0 kg
[2025-06-26] MEDS ORDERED: dexAMETHasone 4 MG/ML 1 ML VIAL As Ordered ONE (06:48)
[2025-06-26] MEDS ORDERED: LIDOCAINE 2% 100 MG/5 ML SDV (FOR ANES.) As Ordered ONE (06:48)
[2025-06-26] MEDS ORDERED: ONDANSETRON 4MG/2ML VIAL As Ordered ONE (06:48)
[2025-06-26] MEDS ORDERED: MIDAZOLAM INJ 2 MG/2 ML VIAL As Ordered ONE (06:52)
[2025-06-26] MEDS: LR 1,000 ML IV SCH (07:10)
[2025-06-26] MEDS ORDERED: HOME MED LIST COMPLETE! XX SCH (07:40)
[2025-06-26] MEDS: ceFAZolin SOD 2 GM IV ONCE IV ONE (08:27)
[2025-06-26] MEDS ORDERED: ACETAMINOPHEN 1000MG/100ML IV BAG As Ordered ONE (08:33)
[2025-06-26] MEDS: LIDOCAINE 1% SDV 30 ML VIAL As Ordered ONE (08:53)
[2025-06-26] MEDS: ISOVUE-300 61% 100 ML VIAL As Ordered ONE (09:38)
[2025-06-26] MEDS: AMIODARONE HCL 360 MG/200 ML PREMIXED BAG As Ordered ONE (09:39)
[2025-06-26] MEDS ORDERED: ONDANSETRON 4MG/2ML VIAL IV PRN (09:45)
[2025-06-26] MEDS ORDERED: HYDROMORPHONE HCL 0.5 MG/0.5 ML SYRINGE IV PRN (09:45)
[2025-06-26 11:13] VITALS: BP 135/75; TEMP 97.9; O2SAT 96
== END 2025-06-26 11:40 | disposition home or self-care (01) ==
LOC: M SDC 06:31
PROVIDERS: ATTEND Internal Medicine Cardiovascular Disease
DX: I49.5 Sick sinus syndrome (principal); I48.21 Permanent atrial fibrillation; I44.1 Atrioventricular block, second degree; I25.10 Atherosclerotic heart disease of native coronary artery without angina pectoris; I27.0 Primary pulmonary hypertension; E78.00 Pure hypercholesterolemia, unspecified; G47.33 Obstructive sleep apnea (adult) (pediatric); Z79.899 Other long term (current) drug therapy; I34.9 Nonrheumatic mitral valve disorder, unspecified; I35.9 Nonrheumatic aortic valve disorder, unspecified
CPT/HCPCS: 33207; 71045; 76000; 93005; C1786; C1898; J0131; J0688; J1100; J2250; J2405; J3010